=== PATIENT | female | born 1935 | race Caucasian/White ===

== ENCOUNTER 2024-02-15 14:37 | Emergency (ER) | payer MEDICARE, SELFPAY ==
--- NOTE | 2024-02-15 14:33 | ECG_ITS ---
APPROVED REPORT Exam: Resting ECG HR:56 bpm ECG Measurements Heart Rate 56 AXES MO 167 P 97 QRSd 166 QRS -20 QT 467 T 15 QTc 458 Conclusion SINUS BRADYCARDIA RIGHT BUNDLE BRANCH BLOCK [120+ ms QRS DURATION, UPRIGHT V1, 40+ ms S IN I/aVL/V4/V5/V6] ABNORMAL ECG UNCONFIRMED REPORT Electronically signed by : PARTH CADE, 02/16/2024 06:10:47
[2024-02-15 14:37] VITALS: BP 112/43; PULSE 58; RESP 18; TEMP 36.6; O2SAT 92; BMI 30.9
--- NOTE | 2024-02-15 14:39 | CT_ITS ---
PROCEDURE INFORMATION: Exam: CTA Neck With Contrast Exam date and time: 02/15/2024 2:54 PM Age: 88 years old Clinical indication: Stroke-like symptoms; Headache; Additional info: Sudden KO, n/v TECHNIQUE: Imaging protocol: Computed tomographic angiography of the neck with contrast. Exam focused on the cervical segments of the vasculature. 3D rendering (Not supervised by radiologist): MIP and/or 3D reconstructed images were created by the technologist. Radiation optimization: All CT scans at this facility use at least one of these dose optimization techniques: automated exposure control; mA and/or kV adjustment per patient size (includes targeted exams where dose is matched to clinical indication); or iterative reconstruction. Contrast material: ISOVUE 370; Contrast volume: 80 ml; Contrast route: INTRAVENOUS (IV); COMPARISON: CT ANGIO HEAD 02/15/2024 2:54 PM FINDINGS: Right common carotid artery: No stenosis. No dissection or occlusion. Right internal carotid artery: No stenosis of the extracranial segment. No dissection or occlusion. Right external carotid artery: No occlusion or stenosis of the origin. Left common carotid artery: No stenosis. No dissection or occlusion. Left internal carotid artery: No stenosis of the extracranial segment. No dissection or occlusion. Left external carotid artery: No occlusion or stenosis of the origin. Right vertebral artery: No stenosis. No dissection or occlusion. Left vertebral artery: No stenosis. No dissection or occlusion. Thyroid: Multiple hypodense lesions in the right lobe of the thyroid without suspicious features. Soft tissues: Normal. No significant soft tissue swelling. Bones/joints: No acute fracture. Lungs: 3 mm noncalcified pulmonary nodule in the right upper lobe. For patients at low risk (minimal or absent history of smoking and of other known risk factors), no routine follow-up is indicated. For patients at high risk (history of smoking or of other known risk factors), consider optional CT Chest at 12 months. (Reference: Pancho) IMPRESSION: 1. No hemodynamically significant stenosis or large vessel occlusion in the arteries of the neck. 2. 3 mm noncalcified nodule in the right upper lobe with follow-up recommendations as above. REFERENCES: 1. Pancho Kelly et al. Guidelines for Management of Incidental Pulmonary Nodules Detected on CT Images: From the Fleischner Society 2017. Radiology. 2017;284(1):228-243. 2. NASCET CRITERIA. The degree of stenosis in the cervical segment of the internal carotid artery is based on NASCET criteria. Normal is no stenosis. Mild is less than 50% stenosis. Moderate is 50-69% stenosis. Severe is 70% to 99% stenosis. Total occlusion is no detectable patent lumen.
--- NOTE | 2024-02-15 14:39 | CT_ITS ---
PROCEDURE INFORMATION: Exam: CT Head Without Contrast Exam date and time: 02/15/2024 2:48 PM Age: 88 years old Clinical indication: Stroke-like symptoms; Headache; Additional info: Sudden KO. Family states HX of stroke last week TECHNIQUE: Imaging protocol: Computed tomography of the head without contrast. Radiation optimization: All CT scans at this facility use at least one of these dose optimization techniques: automated exposure control; mA and/or kV adjustment per patient size (includes targeted exams where dose is matched to clinical indication); or iterative reconstruction. Other technique: STROKE PROTOCOL was implemented. COMPARISON: No relevant prior studies available. FINDINGS: Brain: Suspected old infarct in the medial aspect of the right cerebellum. Diffuse cerebral atrophy and white matter microangiopathic chronic ischemia in both hemispheres. No CT evidence of acute infarct, hemorrhage, mass or mass effect. Cerebral ventricles: No ventriculomegaly. Paranasal sinuses: Mild chronic right maxillary sinusitis. Mastoid air cells: Visualized mastoid air cells are well aerated. Bones: Unremarkable. No acute fracture. Soft tissues: Unremarkable. IMPRESSION: 1. Senescent brain changes but no CT evidence of acute brain injury. 2. Suspected old infarct in the medial right cerebellum. ASSESSMENT: ASPECTS ([place] Stroke Program Early CT Score) is 10.
--- NOTE | 2024-02-15 14:39 | CT_ITS ---
PROCEDURE INFORMATION: Exam: CTA Head With Contrast, Arteriography Exam date and time: 02/15/2024 2:54 PM Age: 88 years old Clinical indication: Stroke-like symptoms; Headache; Additional info: Sudden KO, n/v TECHNIQUE: Imaging protocol: Computed tomographic angiography of the head with contrast. Exam focused on the arteries. 3D rendering (Not supervised by radiologist): MIP and/or 3D reconstructed images were created by the technologist. Radiation optimization: All CT scans at this facility use at least one of these dose optimization techniques: automated exposure control; mA and/or kV adjustment per patient size (includes targeted exams where dose is matched to clinical indication); or iterative reconstruction. Contrast material: ISOVUE 370; Contrast volume: 80 ml; Contrast route: INTRAVENOUS (IV); COMPARISON: CT HEAD/BRAIN WO CON 02/15/2024 2:48 PM FINDINGS: ANTERIOR CIRCULATION: Right internal carotid artery: Intracranial segment is patent with no significant stenosis. No aneurysm. Right middle cerebral artery: No occlusion or significant stenosis. No aneurysm. Right anterior cerebral artery: No occlusion or significant stenosis. No aneurysm. Left internal carotid artery: Intracranial segment is patent with no significant stenosis. No aneurysm. Left middle cerebral artery: No occlusion or significant stenosis. No aneurysm. Left anterior cerebral artery: No occlusion or significant stenosis. No aneurysm. POSTERIOR CIRCULATION: Right vertebral artery: No occlusion or significant stenosis. No aneurysm. Left vertebral artery: No occlusion or significant stenosis. No aneurysm. Basilar artery: No occlusion or significant stenosis. No aneurysm. Right posterior cerebral artery: No occlusion or significant stenosis. No aneurysm. Left posterior cerebral artery: No occlusion or significant stenosis. No aneurysm. Brain: No definite mass, mass effect, or midline shift. Cerebral ventricles: No ventriculomegaly. Bones/joints: Unremarkable. No acute fracture. Soft tissues: Unremarkable. IMPRESSION: No large vessel stenosis or occlusion.
--- NOTE | 2024-02-15 14:39 | PC.NURSE ---
radiology notified of ct scans
--- NOTE | 2024-02-15 14:42 | PC.NURSE ---
pt to ct
--- NOTE | 2024-02-15 14:50 | XR_ITS ---
PROCEDURE INFORMATION: Exam: XR Chest Exam date and time: 02/15/2024 2:52 PM Age: 88 years old Clinical indication: Dyspnea TECHNIQUE: Imaging protocol: Radiologic exam of the chest. Views: 1 view. COMPARISON: No relevant prior studies available. FINDINGS: Tubes, catheters and devices: Loop recorder projecting over the left chest. Lungs: Unremarkable. No consolidation. Pleural spaces: Unremarkable. No pleural effusion. No pneumothorax. Heart/Mediastinum: Mild cardiomegaly. Bones/joints: Unremarkable. IMPRESSION: Mild cardiomegaly, otherwise clear chest.
--- NOTE | 2024-02-15 14:50 | PC.NURSE ---
Called [facility] for medical records per Dr. Godfrey. [facility] said [facility] would get them faxed on over.
[2024-02-15] MEDS: IOPAMIDOL-370 (76%);100ML BOTTLE 80 ML IV (14:51)
[2024-02-15] MEDS: SODIUM CHLORIDE 0.9% 10ML SYR (RAD ONLY) 10 ML IV (14:51)
[2024-02-15] MEDS: 0.9 % SODIUM CHLORIDE 50 ML VIAL IV (14:51)
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
--- NOTE | 2024-02-15 14:59 | PC.NURSE ---
pt returned from ct
[2024-02-15 15:00] VITALS: BP 107/39; PULSE 63; RESP 12; O2SAT 92
[2024-02-15 15:03] VITALS: BP 103/37; PULSE 63; O2SAT 99
[2024-02-15] MEDS: ACETAMINOPHEN 1,000MG/100ML VIAL 1000 MG IV (15:03)
[2024-02-15] MEDS: LACTATED RINGERS 1000ML 1,000 ML 999 ML IV (15:04)
[2024-02-15 15:13] LABS: Albumin Level 3.8 g/dl (3.5-5.0); Chloride 107 mmol/L (98-107); Potassium 3.2 mmoL/L (3.5-5.1); Sodium 138 mmol/L (136-145)
[2024-02-15 15:16] LABS: Alanine Aminotransferase 19 U/L (12-78); Albumin/Globulin Ratio 1.7 (1.1-1.8); Alkaline Phosphatase 67 U/L (38-126); Anion Gap 13.2 mEq/L (5-15); Aspartate Amino Transferase 21 U/L (14-36); Bilirubin,Total 0.9 mg/dl (0.2-1.3); Blood Urea Nitrogen 24 mg/dl (7-17); Calcium 9.6 mg/dl (8.4-10.2); Carbon Dioxide 21 mmol/L (22.0-30.0); Creatinine Clearance Estimated 38 mL/min (50-200); Estimated Glomerular Filt Rate 39 ml/min (>60); GFR (African American) 47 ML/MIN (>60); Globulin 2.2 g/dL (1.3-3.2); Glucose 154 mg/dl (74-100)
[2024-02-15 15:29] LABS: Troponin I < 0.01 ng/ml (0.00-0.034)
[2024-02-15 15:30] VITALS: BP 111/44; PULSE 57; O2SAT 99
--- NOTE | 2024-02-15 15:33 | PC.NURSE ---
DR LANGLEY SPEAKING WITH YASMINEAD
--- NOTE | 2024-02-15 15:34 | PC.NURSE ---
Called [facility] back to check on Medical Records.
[2024-02-15 16:02] LABS: Basophils % 0.4 % (0.1-2.0); Eosinophils % 0.5 % (0.1-12.0); Hematocrit 25.7 % (37.0-47.0); Hemoglobin 8.7 g/dL (12.2-16.2); Lymphocytes # 1.6 K/mm3 (0.7-4.5); Mean Corpuscular HGB Conc 33.9 g/dL (31.8-35.4); Mean Corpuscular Hemoglobin 33.9 pg (27.0-31.2); Mean Platelet Volume 9.7 fl (7.4-10.4); Monocytes # 0.2 K/mm3 (0.1-1.0); Monocytes % 5.6 % (1.7-9.3); Neutrophils # 2.4 K/mm3 (1.8-7.8); Neutrophils % 56.5 % (37.0-80.0); Platelet Count 152 K/mm3 (142-424); Red Blood Count 2.57 M/mm3 (4.20-5.40); Red Cell Distribution Width 16.3 % (11.5-17.5); White Blood Count 4.2 K/mm3 (4.8-10.8)
[2024-02-15 16:08] LABS: Activated Partial Thrombo Time 24.3 seconds (22.8-30.6); INR 0.91 (0.9-1.1); Prothrombin Time 10.3 seconds (10.1-12.5)
[2024-02-15] MEDS: POTASSIUM CHLORIDE 20MEQ/15ML UDC 40 MEQ PO (16:28)
--- NOTE | 2024-02-15 16:55 | PC.NURSE ---
Called [facility] back following up on the medical records. They are still working on getting those sent.
--- NOTE | 2024-02-15 17:45 | PC.NURSE ---
REPORT CALLED TO GUTIERREZ AT [id number]
[2024-02-15 18:03] VITALS: BP 132/55; PULSE 57; RESP 18; TEMP 36.7; O2SAT 97
== END 2024-02-15 18:09 | disposition home or self-care (01) ==
PROVIDERS: Student in an Organized Health Care Education/Training Program; Emergency Provider Student in an Organized Health Care Education/Training Program; PCP Nurse Practitioner Acute Care
DX: R55 Syncope and collapse (principal); R51.9 Headache, unspecified; R11.2 Nausea with vomiting, unspecified; R91.1 Solitary pulmonary nodule
CPT/HCPCS: 70450; 70496; 70498; 71045; 80053; 84484; 85025; 85610; 85730; 93005; 96361; 96374; 99291; J0131; J7120; Q9967

== ENCOUNTER 2024-02-18 13:36 | Emergency (ER) | payer MEDICARE, SELFPAY ==
[2024-02-18 13:37] VITALS: BP 125/48; PULSE 60; RESP 16; TEMP 36.7; O2SAT 97; BMI 30.9
--- NOTE | 2024-02-18 14:00 | HMH.EDGENADL ---
Discharge Plan Disposition Patient Disposition: Home, Self-Care Prescriptions Prescriptions: New ondansetron 4 mg tablet,disintegrating 4 mg PO Q6H PRN (Reason: nausea and vomiting) Qty: 14 0RF No Action melatonin 5 mg capsule 5 mg PO DAILY 90 Days Qty: 90 0RF mirtazapine 30 mg tablet 30 mg PO DAILY Qty: 30 2RF polyethylene glycol 3350 [Miralax] 17 gram/dose powder 17 g PO DAILY Qty: 510 0RF rivastigmine 9.5 mg/24 hour patch 24 hour 9.5 mg transdermal DAILY Qty: 30 2RF Rx Instructions: apply at 8am, remove at 8am tamsulosin 0.4 mg capsule 0.4 mg PO DAILY Qty: 30 2RF lisinopril 20 mg tablet 20 mg PO DAILY Qty: 30 2RF amlodipine 10 mg tablet 10 mg PO DAILY Qty: 30 2RF pravastatin 80 mg tablet 80 mg PO DAILY Qty: 30 2RF acetaminophen 325 mg capsule 650 mg PO Q6H PRN (Reason: headache) Qty: 60 0RF apixaban 2.5 mg tablet 2.5 mg PO BID Qty: 60 2RF aripiprazole 2 mg tablet 2 mg PO DAILY Qty: 30 2RF bethanechol chloride 10 mg tablet 10 mg PO TID Qty: 90 2RF donepezil 10 mg tablet 10 mg PO DAILY Qty: 30 2RF fluticasone furoate 50 mcg/actuation blister with device See Rx Instructions inhalation DAILY 90 Days Qty: 30 0RF Rx Instructions: 2 inhaled daily; hydralazine 25 mg tablet 25 mg PO BID Qty: 60 0RF hydroxyzine HCl 25 mg tablet 25 mg PO TID PRN (Reason: itching) Qty: 90 0RF meclizine 25 mg tablet 25 mg PO TID PRN (Reason: dizziness) Qty: 90 0RF Referrals Follow up/Referrals: Provider,Referral, MD [Primary Care Provider] - See instructions Activity Restrictions/Add. Instructions Additional Instructions/Restrictions: Give Tylenol or ibuprofen as needed for headache. Give Zofran as needed for nausea and vomiting. Follow-up with primary care doctor. Please return emerged part with any new, concerning, worsening symptoms Clinical Impressions Clinical Impression: Headache Qualifiers: Headache type: other headache syndrome Qualified Code(s): G44.89 - Other headache syndrome Print Language Print Language: [place] Discharge ED Provider: Manuel Eddy General Adult HPI <AUDREY Ragsdale - Last Filed: 02/18/24 14:00> General Chief complaint: Headache Stated complaint: Nausea/Vomiting Time Seen by Provider: 02/18/24 13:47 Mode of Arrival: EMS Source of Information: EMS Limitations: Altered Mental Status Description of Symptoms (Recalled from ER Triage Doc. by RN): headache,nausea Related Data Previous Rx's ?Medication ?Instructions ?Recorded acetaminophen 325 mg capsule 650 mg (2 x 325 mg) PO Q6H PRN 02/17/24 headache #60 caps amlodipine 10 mg tablet 10 mg PO DAILY #30 tabs 02/17/24 apixaban 2.5 mg tablet 2.5 mg PO BID #60 tabs 02/17/24 aripiprazole 2 mg tablet 2 mg PO DAILY #30 tabs 02/17/24 bethanechol chloride 10 mg tablet 10 mg PO TID #90 tabs 02/17/24 donepezil 10 mg tablet 10 mg PO DAILY #30 tabs 02/17/24 fluticasone furoate 50 See Rx Instructions inhalation 02/17/24 mcg/actuation blister powder for DAILY 90 days #30 ea inhalation hydralazine 25 mg tablet 25 mg PO BID #60 tabs 02/17/24 hydroxyzine HCl 25 mg tablet 25 mg PO TID PRN itching #90 tabs 02/17/24 lisinopril 20 mg tablet 20 mg PO DAILY #30 tabs 02/17/24 meclizine 25 mg tablet 25 mg PO TID PRN dizziness #90 tabs 02/17/24 melatonin 5 mg capsule 5 mg PO DAILY 90 days #90 caps 02/17/24 mirtazapine 30 mg tablet 30 mg PO DAILY #30 tabs 02/17/24 polyethylene glycol 3350 17 17 g PO DAILY #510 grams 02/17/24 gram/dose oral powder (Miralax) pravastatin 80 mg tablet 80 mg PO DAILY #30 tabs 02/17/24 rivastigmine 9.5 mg/24 hour 9.5 mg transdermal DAILY #30 ea 02/17/24 transdermal patch tamsulosin 0.4 mg capsule 0.4 mg PO DAILY #30 caps 02/17/24 ondansetron 4 mg disintegrating 4 mg PO Q6H PRN nausea and 02/18/24 tablet vomiting #14 tabs Allergies Allergy/AdvReac Type Severity Reaction Status Date / Time No Known Allergies Allergy Verified 02/15/24 15:00 <Manuel Eddy MD - Last Filed: 02/18/24 15:40> History of Present Illness HPI narrative: This is an 88-year-old female with a past medical history of hypertension, stroke, and dementia who presents with concern for headache. Patient was seen the emergency department 3 days ago for similar complaints. New resident at long-term and is unhappy with her placement. States the back of her head hurts but cannot provide any further characterization. Also reports nausea and vomiting. Denies any other symptoms. [facility] <AUDREY Ragsdale - Last Filed: 02/18/24 14:00> [facility] Disclaimer: The information contained in this section may have been updated after the patient was seen, as this information can be updated by other users. Medical History (Updated 02/18/24 @ 15:37 by Manuel Eddy MD) Pancytopenia MICKEY (acute kidney injury) Essential hypertension Dementia Severe malnutrition Cerebellar stroke Social History (Updated 02/15/24 @ 17:36 by Ed Taylor MD) Smoking Status: Never smoker alcohol intake: never current occupational status: retired Travel in the last 8 weeks: None <AUDREY Ragsdale - Last Filed: 02/18/24 14:00> ROS Obtained: Yes Systems reviewed as appropriate & no additional complaints except as documented Physical Exam <AUDREY Ragsdale - Last Filed: 02/18/24 14:00> General General appearance: alert and in no apparent distress Head Head exam: atraumatic and normal inspection Eye Eye exam: Present normal appearance, PERRL and EOMI ENT ENT exam: Present normal exam, normal oropharynx and mucous membranes moist Neck Neck exam: Present normal inspection, full ROM and trachea midline; Absent lymphadenopathy Chest Chest inspection: Present normal inspection and symmetric chest wall rise Respiratory Respiratory exam: Present normal lung sounds bilaterally; Absent accessory muscle use Cardiovascular Cardiovascular exam: Present regular rate, normal rhythm, normal heart sounds, +S1 and +S2 Abdominal Exam Abdominal exam: Present soft and normal bowel sounds; Absent tenderness, guarding or rebound Extremities Exam Extremities exam: Present normal inspection and full ROM Neurological Exam Neurological exam: Present alert, oriented X3 and CN II-XII intact Psychiatric Psychiatric exam: Present normal affect and normal mood Skin Skin exam: Present warm, dry and normal color Lymphatic Lymphatic Findings: no adenopathy Medical Decision Making <AUDREY Ragsdale - Last Filed: 02/18/24 14:00> Medical Records Screening: Per USPSTF and CDC recommendations, given the prevalence of disease in our region, it is our hospital?s policy to screen for HIV and viral Hepatitis for all patients aged 18 and over and those with ongoing risk factors. Vital Signs: 02/18/24 13:37 Temperature 98.1 F Temperature Source Axillary Pulse Rate [Right] 60 Respiratory Rate 16 Blood Pressure [Right Arm] 125/48 L Blood Pressure Mean [Right Arm] 73 02 Sat by Pulse Oximetry 97 Lab Data Lab Results 02/18/24 13:40: WBC 3.0 L D, RBC 2.58 L, Hgb 9.1 L, Hct 25.8 L, MCV 99.8 H, MCH 35.1 H, MCHC 35.1, RDW 16.5, Plt Count 156, MPV 8.9, Neut % (Auto) 71.5, Lymph % (Auto) 20.9, Faulkner % (Auto) 6.3, Eos % (Auto) 0.7, Baso % (Auto) 0.5, Neut # (Auto) 2.1, Lymph # (Auto) 0.6 L, Faulkner # (Auto) 0.2, Eos # (Auto) 0.0, Baso # (Auto) 0.0, Sodium 138, Potassium 3.5, Chloride 107, Carbon Dioxide 24, Anion Gap 10.5, BUN 26 H, Creatinine 1.30 H, Estimated Creat Clear 38, Estimated GFR 39 L, Est GFR ( Amer) 47 L, Glucose 122 H, Calcium 9.2, Total Bilirubin 0.8, AST 24, ALT 15, Alkaline Phosphatase 61, Total Protein 5.8 L, Albumin 3.7, Globulin 2.1, Albumin/Globulin Ratio 1.8 02/18/24 13:40 02/18/24 13:40 Orders (Tests/Meds): ED MEDICATIONS Discontinued Medications Generic Name Dose Route Start Last Admin Trade Name Freq PRN Reason Stop Dose Admin Acetaminophen 1,000 mg 02/18/24 14:05 02/18/24 14:16 Acetaminophen 500mg Tab PO 02/18/24 14:06 1,000 mg ONCE ONE Administration ORDERS Category Date Time Status CT head/brain wo con Stat Cat Scan 02/18/24 14:05 Completed CBC w/Auto Diff [Complete Blood Count Auto Diff] Stat Lab 02/18/24 13:40 Completed CMP [Comprehensive Metabolic Panel] Stat Lab 02/18/24 13:40 Completed HIV (1&2) Antibody Rapid Stat Lab 02/18/24 13:47 Ordered Hep C Ab with Reflex to RNA Stat Lab 02/18/24 13:47 Ordered Medical Decision Narrative: In summary patient is a [age, sex] who presents to the emergency department for evaluation of [complaint]. Patient is [hemodynamically stable/unstable] upon arrival, [febrile/afebrile]. [Unremarkable physical exam, nonfocal exam versus focal remarkable exam]. Differential diagnosis includes [DDx]. Initial workup will be conducted with [hematologic labs, imaging, respiratory swab, describe workup]. Initial interventions include [crystalloid bolus, medications, p.o. challenge, etc.] initial workup reviewed by me [hematologic labs are remarkable for... Imaging remarkable for... Urinalysis remarkable for]. Upon repeat evaluation [patient had acceptable resolution of symptoms, had persistent pain for which additional interventions were conducted (describe interventions), tolerated p.o., was ambulatory, etc.]. Given this [patient is appropriate for discharge at this time and will be discharged with a prescription for... The case was discussed with hospital medicine regarding management and they will admit the patient their service for continued evaluation at this time... Etc.] Places where you can increase complexity: I informally interpreted the patient's chest x-ray or CT read and is remarkable for... Documenting what the child monitor shows with rate and rhythm Consideration of test but deferring. Ex: I considered chest x-ray on this patient however given that they have no oxygen requirement and are clear to auscultation all lung parikh will be deferred. Social determinants of health: Given that patient is undomiciled increases complexity. Given that patient has polysubstance abuse compounds all aspects of care <Manuel Eddy MD - Last Filed: 02/18/24 15:40> Medical Records Medical records reviewed: Yes I reviewed the patient's medical records. Paco Inquiry Pt receiving controlled substance: No Vital Signs: 02/18/24 13:37 Temperature 98.1 F Temperature Source Axillary Pulse Rate [Right] 60 Respiratory Rate 16 Blood Pressure [Right Arm] 125/48 L Blood Pressure Mean [Right Arm] 73 02 Sat by Pulse Oximetry 97 Lab Data Lab Results 02/18/24 13:40: WBC 3.0 L D, RBC 2.58 L, Hgb 9.1 L, Hct 25.8 L, MCV 99.8 H, MCH 35.1 H, MCHC 35.1, RDW 16.5, Plt Count 156, MPV 8.9, Neut % (Auto) 71.5, Lymph % (Auto) 20.9, Faulkner % (Auto) 6.3, Eos % (Auto) 0.7, Baso % (Auto) 0.5, Neut # (Auto) 2.1, Lymph # (Auto) 0.6 L, Faulkner # (Auto) 0.2, Eos # (Auto) 0.0, Baso # (Auto) 0.0, Sodium 138, Potassium 3.5, Chloride 107, Carbon Dioxide 24, Anion Gap 10.5, BUN 26 H, Creatinine 1.30 H, Estimated Creat Clear 38, Estimated GFR 39 L, Est GFR ( Amer) 47 L, Glucose 122 H, Calcium 9.2, Total Bilirubin 0.8, AST 24, ALT 15, Alkaline Phosphatase 61, Total Protein 5.8 L, Albumin 3.7, Globulin 2.1, Albumin/Globulin Ratio 1.8 Orders (Tests/Meds): ED MEDICATIONS Discontinued Medications Generic Name Dose Route Start Last Admin Trade Name Freq PRN Reason Stop Dose Admin Acetaminophen 1,000 mg 02/18/24 14:05 02/18/24 14:16 Acetaminophen 500mg Tab PO 02/18/24 14:06 1,000 mg ONCE ONE Administration ORDERS Category Date Time Status CT head/brain wo con Stat Cat Scan 02/18/24 14:05 Completed CBC w/Auto Diff [Complete Blood Count Auto Diff] Stat Lab 02/18/24 13:40 Completed CMP [Comprehensive Metabolic Panel] Stat Lab 02/18/24 13:40 Completed HIV (1&2) Antibody Rapid Stat Lab 02/18/24 13:47 Ordered Hep C Ab with Reflex to RNA Stat Lab 02/18/24 13:47 Ordered Medical Decision Narrative: In summary, this 88-year-old female with a history of hypertension, dementia, prior stroke presents to the emergency department today with headache. On initial evaluation patient is afebrile, hemodynamically stable, nontoxic-appearing, baseline mental status, no focal neurological deficits. Differential diagnosis includes but is not limited to stroke, intracranial hemorrhage, migraine. Based on these concerns, I ordered CT head, CBC, CMP. Patient received Tylenol for treatment. Labs personally reviewed demonstrate chronic leukopenia at 3 and chronic anemia with a hemoglobin of 9.1, baseline renal function with creatinine of 1.3. CT imaging personally interpreted demonstrates no acute intracranial pathology. Radiology report notes chronic cerebellar stroke that was noted on previous scans. On reassessment the patient was in stable condition in no acute distress, at baseline mental status. Appropriate for discharge back to nursing care facility. Critical Care <Manuel Eddy MD - Last Filed: 02/18/24 15:40> Critical Care Time Critical Care Time: No
--- NOTE | 2024-02-18 14:05 | CT_ITS ---
PROCEDURE INFORMATION: Exam: CT Head Without Contrast Exam date and time: 02/18/2024 2:20 PM Age: 88 years old Clinical indication: Pain; Headache; Additional info: KO TECHNIQUE: Imaging protocol: Computed tomography of the head without contrast. Radiation optimization: All CT scans at this facility use at least one of these dose optimization techniques: automated exposure control; mA and/or kV adjustment per patient size (includes targeted exams where dose is matched to clinical indication); or iterative reconstruction. COMPARISON: CT ANGIO HEAD 02/15/2024 2:54 PM FINDINGS: Brain: An age-indeterminate infarct is again noted within the inferomedial right cerebellar hemisphere. The infarct may be subacute. An MRI is recommended if there is continued clinical concern for an acute stroke. There is no acute intracranial hemorrhage, mass effect, or midline shift. Chronic small vessel ischemic disease is present in the cerebral white matter. Age-related cerebral and cerebellar volume loss is present. Cerebral ventricles: No hydrocephalus. Paranasal sinuses: Mild mucosal thickening is noted within the maxillary sinuses. The remaining paranasal sinuses are clear. Mastoid air cells: Visualized mastoid air cells are well aerated. Orbital cavities: The visualized orbits appear unremarkable. Bones: Unremarkable. No acute fracture. Soft tissues: Unremarkable. IMPRESSION: An age-indeterminate infarct is again noted within the inferomedial right cerebellar hemisphere. The infarct may be subacute. An MRI is recommended if there is continued clinical concern for an acute stroke.
[2024-02-18 14:13] LABS: Basophils % 0.5 % (0.1-2.0); Eosinophils % 0.7 % (0.1-12.0); Hematocrit 25.8 % (37.0-47.0); Hemoglobin 9.1 g/dL (12.2-16.2); Lymphocytes # 0.6 K/mm3 (0.7-4.5); Lymphocytes % 20.9 % (10-50); Mean Corpuscular HGB Conc 35.1 g/dL (31.8-35.4); Mean Corpuscular Hemoglobin 35.1 pg (27.0-31.2); Mean Corpuscular Volume 99.8 fl (81-99); Mean Platelet Volume 8.9 fl (7.4-10.4); Monocytes # 0.2 K/mm3 (0.1-1.0); Monocytes % 6.3 % (1.7-9.3); Neutrophils # 2.1 K/mm3 (1.8-7.8); Neutrophils % 71.5 % (37.0-80.0); Platelet Count 156 K/mm3 (142-424); Red Blood Count 2.58 M/mm3 (4.20-5.40); Red Cell Distribution Width 16.5 % (11.5-17.5)
[2024-02-18] MEDS: ACETAMINOPHEN 500MG TAB 1000 MG PO (14:16)
[2024-02-18 14:23] LABS: Alanine Aminotransferase 15 U/L (12-78); Albumin Level 3.7 g/dl (3.5-5.0); Albumin/Globulin Ratio 1.8 (1.1-1.8); Alkaline Phosphatase 61 U/L (38-126); Anion Gap 10.5 mEq/L (5-15); Aspartate Amino Transferase 24 U/L (14-36); Bilirubin,Total 0.8 mg/dl (0.2-1.3); Blood Urea Nitrogen 26 mg/dl (7-17); Calcium 9.2 mg/dl (8.4-10.2); Carbon Dioxide 24 mmol/L (22.0-30.0); Chloride 107 mmol/L (98-107); Creatinine Clearance Estimated 38 mL/min (50-200); Estimated Glomerular Filt Rate 39 ml/min (>60); GFR (African American) 47 ML/MIN (>60); Globulin 2.1 g/dL (1.3-3.2); Glucose 122 mg/dl (74-100); Potassium 3.5 mmoL/L (3.5-5.1); Sodium 138 mmol/L (136-145); Total Protein,Serum 5.8 g/dl (6.3-8.2)
--- NOTE | 2024-02-18 15:56 | PC.NURSE ---
Report called to Dedra ROSENBERG at [facility]
--- NOTE | 2024-02-18 16:13 | PC.NURSE ---
[facility] NOTIFIED OF TRANSFER TO [facility]
[2024-02-18 16:26] VITALS: BP 141/51; PULSE 65; RESP 18; TEMP 36.4; O2SAT 95
== END 2024-02-18 16:30 | disposition home or self-care (01) ==
PROVIDERS: Emergency Provider Student in an Organized Health Care Education/Training Program
DX: R51.9 Headache, unspecified (principal); R11.2 Nausea with vomiting, unspecified
CPT/HCPCS: 70450; 80053; 85025; 99284

== ENCOUNTER 2024-02-20 10:58 | Outpatient (CLI) | payer MEDICARE, SELFPAY ==
[2024-02-20 11:32] LABS: Chloride 105 mmol/L (98-107); Sodium 137 mmol/L (136-145)
[2024-02-20 11:33] LABS: Potassium 3.9 mmoL/L (3.5-5.1)
[2024-02-20 11:36] LABS: Anion Gap 10.9 mEq/L (5-15); Blood Urea Nitrogen 23 mg/dl (7-17); Carbon Dioxide 25 mmol/L (22.0-30.0); Estimated Glomerular Filt Rate 42 ml/min (>60); GFR (African American) 51 ML/MIN (>60); Glucose 119 mg/dl (74-100)
== END 2024-02-20 23:59 | disposition home or self-care (01) ==
LOC: LAB.DROPOF 10:59
PROVIDERS: PCP Nurse Practitioner Family; Visit Provider Nurse Practitioner Family
DX: E78.5 Hyperlipidemia, unspecified (principal); E87.6 Hypokalemia; I10 Essential (primary) hypertension; N17.9 Acute kidney failure, unspecified
CPT/HCPCS: 80048

== ENCOUNTER 2024-02-21 11:03 | Emergency (ER) | payer MEDICARE, SELFPAY ==
[2024-02-21] VITALS (12 sets, daily range): BP systolic 109–138; BP diastolic 43–95; PULSE 64–84; RESP 16; TEMP 36.4–36.7; O2SAT 95–98; BMI 24.1
--- NOTE | 2024-02-21 11:08 | ECG_ITS ---
APPROVED REPORT Exam: Resting ECG HR:62 bpm ECG Measurements Heart Rate 62 AXES AK 167 P 44 QRSd 171 QRS -12 QT 431 T 37 QTc 436 Conclusion SINUS RHYTHM WITH MARKED SINUS ARRHYTHMIA RIGHT BUNDLE BRANCH BLOCK [120+ ms QRS DURATION, UPRIGHT V1, 40+ ms S IN I/aVL/V4/V5/V6] No STEMI Electronically signed by : TARA HARP, 02/22/2024 07:54:43
--- OUTSIDE RECORDS SUMMARY | 2024-02-21 11:08 | XMS_ITS | Patient Health Record ---
Author Organization [facility]-Alek Zavala MD Address [address] [place] [address] Care Team Providers Care Dietetics Teacher Name Role Phone Alek Zavala Unavailable [phone] REASON FOR REFERRAL No Information MEDICATIONS Medication SIG (Take, Route, Frequency, Duration) Notes Start Date End Date Status Lisinopril Active Pravastatin Sodium A ctive amLODIPine Besylate Active Vitamin D (Ergocalciferol) Active Azithromycin Not-Bakari ing Memantine HCl Not-Ta melisa Donepezil HCl Not-Ta melisa SOCIAL HISTORY Tobacco Use: Social History Observation Description Date Details (start date - stop date) Never Smoker NA - NA Sex Assigned At : Social History Observation Description Sex Assigned At Unknown Smoking Question Answer Notes Do you Smoke ? 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 [id number] PLAN OF TREATMENT No Information Insurance Providers Payer Name Payer Address Payer Phone Subscriber Number Group Number Insured Name Patient Relationship to Insured Coverage Start Date Coverage End Date [employer] [address] [address] [place] [address] [phone] [id number] Deann Carrillo Self - patient is the insured MEDICAL (GENERAL) HISTORY Medical History History ICD Code Thyroid Disease No hypertension No asthma No Diabetes No Diabetes Insulin Dependent No Heart Disease No Cancer No Lung Disease No kidney stones No Surgical History Surgery Date(Month/Year) tonsillectomy
--- NOTE | 2024-02-21 11:18 | HMH.EDGENADL ---
Discharge Plan Disposition Patient Disposition: Xfer SNF Condition: Good Prescriptions Prescriptions: No Action melatonin 5 mg capsule 5 mg PO DAILY 90 Days Qty: 90 0RF mirtazapine 30 mg tablet 30 mg PO DAILY Qty: 30 2RF polyethylene glycol 3350 [Miralax] 17 gram/dose powder 17 g PO DAILY Qty: 510 0RF rivastigmine 9.5 mg/24 hour patch 24 hour 9.5 mg transdermal DAILY Qty: 30 2RF Rx Instructions: apply at 8am, remove at 8am tamsulosin 0.4 mg capsule 0.4 mg PO DAILY Qty: 30 2RF lisinopril 20 mg tablet 20 mg PO DAILY Qty: 30 2RF amlodipine 10 mg tablet 10 mg PO DAILY Qty: 30 2RF pravastatin 80 mg tablet 80 mg PO DAILY Qty: 30 2RF acetaminophen 325 mg capsule 650 mg PO Q6H PRN (Reason: headache) Qty: 60 0RF apixaban 2.5 mg tablet 2.5 mg PO BID Qty: 60 2RF aripiprazole 2 mg tablet 2 mg PO DAILY Qty: 30 2RF bethanechol chloride 10 mg tablet 10 mg PO TID Qty: 90 2RF donepezil 10 mg tablet 10 mg PO DAILY Qty: 30 2RF fluticasone furoate 50 mcg/actuation blister with device See Rx Instructions inhalation DAILY 90 Days Qty: 30 0RF Rx Instructions: 2 inhaled daily; hydralazine 25 mg tablet 25 mg PO BID Qty: 60 0RF hydroxyzine HCl 25 mg tablet 25 mg PO TID PRN (Reason: itching) Qty: 90 0RF meclizine 25 mg tablet 25 mg PO TID PRN (Reason: dizziness) Qty: 90 0RF ondansetron 4 mg tablet,disintegrating 4 mg PO Q6H PRN (Reason: nausea and vomiting) Qty: 14 0RF Referrals Follow up/Referrals: Provider,Referral, MD [Primary Care Provider] - See instructions Activity Restrictions/Add. Instructions Additional Instructions/Restrictions: You were evaluated in the emergency department today. Please make sure you stay hydrated and eat a well-balanced diet. Return to the emergency department for new or worsening symptoms Clinical Impressions Clinical Impression: Acute dehydration, MICKEY (acute kidney injury) Instructions Patient Instructions: DI for Dehydration -- Adult Print Language Print Language: Estonian Discharge ED Provider: Ed Taylor General Adult HPI <Ed Taylor MD - Last Filed: 02/21/24 15:51> General Chief complaint: Weakness Stated complaint: Weakness Time Seen by Provider: 02/21/24 11:18 Mode of Arrival: EMS Source of Information: EMS Limitations: No Limitations Description of Symptoms (Recalled from ER Triage Doc. by RN): Pt was found by [employer] employee sitting in a chair unresponsive. pt was diaphoretic, cold, clammy and has had a decreased appetite. pt is alert to self, this is her baseline. pt is reportedly independent with ambulation. pt has a hx of dementia and CVA. [facility] told EMS that pt had an episode last week that presented just like today. History of Present Illness HPI narrative: Deann Carrillo is a 88F with a history of hyperlipidemia, MICKEY, hypertension, dimension, cerebellar stroke who presents to the emergency department from [facility] via EMS for altered mental status. EMS states that they were initially called out for another patient, however they walked in, the patient was in her wheelchair, slumped over and drooling and was minimally responsive. Fingerstick blood glucose and route was 157 and her mentation improved and round. Initial GCS was 11 with EMS. Patient is complaining of some right-sided head pain is unsure when this began. She is alert to self only at this time, however it is unclear what her baseline is at this time. She has no other complaints or concerns at this time. Related Data Previous Rx's ?Medication ?Instructions ?Recorded acetaminophen 325 mg capsule 650 mg (2 x 325 mg) PO Q6H PRN 02/17/24 headache #60 caps amlodipine 10 mg tablet 10 mg PO DAILY #30 tabs 02/17/24 apixaban 2.5 mg tablet 2.5 mg PO BID #60 tabs 02/17/24 aripiprazole 2 mg tablet 2 mg PO DAILY #30 tabs 02/17/24 bethanechol chloride 10 mg tablet 10 mg PO TID #90 tabs 02/17/24 donepezil 10 mg tablet 10 mg PO DAILY #30 tabs 02/17/24 fluticasone furoate 50 See Rx Instructions inhalation 02/17/24 mcg/actuation blister powder for DAILY 90 days #30 ea inhalation hydralazine 25 mg tablet 25 mg PO BID #60 tabs 02/17/24 hydroxyzine HCl 25 mg tablet 25 mg PO TID PRN itching #90 tabs 02/17/24 lisinopril 20 mg tablet 20 mg PO DAILY #30 tabs 02/17/24 meclizine 25 mg tablet 25 mg PO TID PRN dizziness #90 tabs 02/17/24 melatonin 5 mg capsule 5 mg PO DAILY 90 days #90 caps 02/17/24 mirtazapine 30 mg tablet 30 mg PO DAILY #30 tabs 02/17/24 polyethylene glycol 3350 17 17 g PO DAILY #510 grams 02/17/24 gram/dose oral powder (Miralax) pravastatin 80 mg tablet 80 mg PO DAILY #30 tabs 02/17/24 rivastigmine 9.5 mg/24 hour 9.5 mg transdermal DAILY #30 ea 02/17/24 transdermal patch tamsulosin 0.4 mg capsule 0.4 mg PO DAILY #30 caps 02/17/24 ondansetron 4 mg disintegrating 4 mg PO Q6H PRN nausea and 02/18/24 tablet vomiting #14 tabs Allergies Allergy/AdvReac Type Severity Reaction Status Date / Time No Known Allergies Allergy Verified 02/20/24 07:45 [facility] <Ed Taylor MD - Last Filed: 02/21/24 15:51> [facility] Disclaimer: The information contained in this section may have been updated after the patient was seen, as this information can be updated by other users. 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 Other Medical History Have you received the Pneumonia Vaccine: Yes <Ed Taylor MD - Last Filed: 02/21/24 15:51> ROS Obtained: Yes Systems reviewed as appropriate & no additional complaints except as documented Physical Exam <Ed Taylor MD - Last Filed: 02/21/24 15:51> General General appearance: alert and in no apparent distress Head Head exam: atraumatic Eye Eye exam: Present normal appearance ENT ENT exam: Present normal external ear exam Neck Neck exam: Present full ROM Chest Chest inspection: Present symmetric chest wall rise Respiratory Respiratory exam: Present normal lung sounds bilaterally; Absent respiratory distress, wheezes or stridor Cardiovascular Cardiovascular exam: Present regular rate and normal rhythm Abdominal Exam Abdominal exam: Present soft; Absent tenderness or guarding Extremities Exam Extremities exam: Present normal inspection Back Exam Back exam: Present normal inspection Neurological Exam Neurological exam: Present alert and other (Moving all extremities spontaneously, following commands, cranial nerves II through XII intact. No focal neurological deficits. Oriented to self but otherwise confused to location and date.) Skin Skin exam: Present warm, dry and other (Dry mucous membranes.) Medical Decision Making <Ed Taylor MD - Last Filed: 02/21/24 15:51> Medical Records Screening: Per USPSTF and CDC recommendations, given the prevalence of disease in our region, it is our hospital?s policy to screen for HIV and viral Hepatitis for all patients aged 18 and over and those with ongoing risk factors. Paco Inquiry Pt receiving controlled substance: No Vital Signs: 02/21/24 11:09 02/21/24 11:30 02/21/24 12:01 Temperature 97.5 F L Temperature Source Oral Pulse Rate 68 65 Pulse Rate [Left] 64 Respiratory Rate 16 Blood Pressure 125/43 L 133/50 L Blood Pressure [Right Arm] 124/53 L Blood Pressure Mean 72 77 Blood Pressure Mean [Right Arm] 76 Blood Pressure Source [Right Arm] Automatic Cuff Blood Pressure Position [Right Arm] Sitting 02 Sat by Pulse Oximetry 98 98 95 Oxygen Delivery Method Room Air 02/21/24 12:31 02/21/24 13:00 02/21/24 13:31 Temperature Temperature Source Pulse Rate 66 74 79 Pulse Rate [Left] Respiratory Rate Blood Pressure 130/47 L 125/60 118/95 H Blood Pressure [Right Arm] Blood Pressure Mean 74 81 100 Blood Pressure Mean [Right Arm] Blood Pressure Source [Right Arm] Blood Pressure Position [Right Arm] 02 Sat by Pulse Oximetry 97 95 96 Oxygen Delivery Method Room Air 02/21/24 14:00 02/21/24 14:31 02/21/24 15:00 Temperature Temperature Source Pulse Rate 79 68 84 Pulse Rate [Left] Respiratory Rate Blood Pressure 137/50 L 109/45 L 135/48 L Blood Pressure [Right Arm] Blood Pressure Mean 82 66 72 Blood Pressure Mean [Right Arm] Blood Pressure Source [Right Arm] Blood Pressure Position [Right Arm] 02 Sat by Pulse Oximetry 96 96 98 Oxygen Delivery Method Room Air 02/21/24 15:30 02/21/24 16:01 Temperature Temperature Source Pulse Rate 66 71 Pulse Rate [Left] Respiratory Rate Blood Pressure 129/48 L 138/54 L Blood Pressure [Right Arm] Blood Pressure Mean 75 82 Blood Pressure Mean [Right Arm] Blood Pressure Source [Right Arm] Blood Pressure Position [Right Arm] 02 Sat by Pulse Oximetry 96 96 Oxygen Delivery Method Room Air Room Air Lab Data Lab Results 02/21/24 11:01: WBC 3.8 L D, RBC 2.40 L, Hgb 8.2 L, Hct 24.2 L, MCV 100.8 H, MCH 34.2 H, MCHC 33.9, RDW 16.8, Plt Count 172, MPV 9.3, Neut % (Auto) 59.5, Lymph % (Auto) 32.4, [place] % (Auto) 7.1, Eos % (Auto) 0.5, Baso % (Auto) 0.6, Neut # (Auto) 2.3, Lymph # (Auto) 1.2, [place] # (Auto) 0.3, Eos # (Auto) 0.0, Baso # (Auto) 0.0, Sodium 136, Potassium 3.4 L, Chloride 107, Carbon Dioxide 23, Anion Gap 9.4, BUN 25 H, Creatinine 1.40 H, Estimated Creat Clear 31, Estimated GFR 35 L, Est GFR ( Amer) 43 L, Glucose 135 H, Calcium 9.0, Magnesium 1.9, Total Bilirubin 0.7, AST 20, ALT 13, Alkaline Phosphatase 65, Troponin I 0.03, Total Protein 5.6 L, Albumin 3.7, Globulin 1.9, Albumin/Globulin Ratio 1.9 H, Procalcitonin 0.106 02/21/24 14:17: Urine Color Yellow, Urine Appearance Clear, Urine pH 5.5, Ur Specific [place] 1.010, Urine Protein Negative, Urine Glucose (UA) Negative, Urine Ketones 1+, Urine Blood Negative, Urine Nitrate Negative, Urine Bilirubin Negative, Urine Urobilinogen 0.2, Ur Leukocyte Esterase Negative, Urine RBC None, Urine WBC None, Ur Squamous Epith Cells Occasional, Urine Bacteria Trace 02/21/24 11:01 02/21/24 11:01 Orders (Tests/Meds): ED MEDICATIONS Discontinued Medications Generic Name Dose Route Start Last Admin Trade Name Freq PRN Reason Stop Dose Admin Acetaminophen 1,000 mg 02/21/24 11:21 02/21/24 12:40 Acetaminophen 500mg Tab PO 02/21/24 11:22 1,000 mg ONCE ONE Administration Lactated Ringer's 1,000 mls @ 999 mls/hr 02/21/24 14:17 02/21/24 14:26 Lactated Ringer's 1000 Ml Bag IV 02/21/24 15:17 999 mls/hr .Q1H1M ONE Administration Iopamidol 80 ml 02/21/24 11:54 02/21/24 11:55 Iopamidol-370 (76%);100ml Bottle IV 02/21/24 11:55 80 ml ONCE ONE Administration Sodium Chloride 10 ml 02/21/24 11:54 02/21/24 11:55 Sodium Chloride 0.9% 10ml Syr (Rad Only) IV 02/21/24 11:55 10 ml ONCE ONE Administration Sodium Chloride 50 ml 02/21/24 11:54 02/21/24 11:54 0.9 % Sodium Chloride 50 Ml Vial IV 02/21/24 11:55 50 ml ONCE ONE Administration ORDERS Category Date Time Status CT angio head Stat Cat Scan 02/21/24 11:[address] angio neck Stat Cat Scan 02/21/24 11:[address] head/brain wo con Stat Cat Scan 02/21/24 11:21 Completed CXR --portable [XR chest portable] Stat Exams 02/21/24 11:21 Completed CBC w/Auto Diff [Complete Blood Count Auto Diff] Stat Lab 02/21/24 11:01 Completed CMP [Comprehensive Metabolic Panel] Stat Lab 02/21/24 11:01 Completed Magnesium Stat Lab 02/21/24 11:01 Completed Procalcitonin Stat Lab 02/21/24 11:01 Completed Troponin I Stat Lab 02/21/24 11:01 Completed UA [Urinalysis and Microscopic] Stat Lab 02/21/24 14:17 Completed Medical Decision Narrative: Deann Carrillo is a 88y female With a history of dementia, cerebellar stroke, MICKEY, hyperlipidemia who presents to the emergency department via EMS from her shelter for complaints of altered mental status. Reportedly, patient was found slumped over in her wheelchair and was minimally responsive at that time. EMS stated that she became more alert with them and route but appeared confused. Patient is hemodynamically stable on arrival, no acute respiratory distress, breathing comfortably on room air. She is confused but is following commands and has no focal neurological deficits. She has dry mucous membranes but otherwise her physical exam is grossly unremarkable. Differential diagnosis includes: UTI, hypoglycemia, electrolyte derangement, dehydration, stroke, among others Patient's workup: CBC, CMP, magnesium, troponin, procalcitonin, urinalysis Patient's workup was largely unremarkable for any acute pathology. Hemoglobin 8.2 (appears to be her baseline), no leukocytosis, no significant electrolyte derangement. Her creatinine is 1.4 with a BUN of 25 (baseline creatinine appears to be 1.2), glucose 135. Her BUN and creatinine appear to be prerenal in nature and will give 1 L lactated ringer. Procalcitonin negative at 0.106, initial troponin less than 0.03. Urine without evidence of infection. At this time, patient's care was transferred to the oncoming provider, Dr. Rios, pending completion of her IV fluids and reassessment. Is felt that once her procedure completed, she will likely be appropriate for discharge with close outpatient follow-up. <Sendy Rios, DO - Last Filed: 02/21/24 20:38> Vital Signs: 02/21/24 11:09 02/21/24 11:30 02/21/24 12:01 Temperature 97.5 F L Temperature Source Oral Pulse Rate 68 65 Pulse Rate [Left] 64 Respiratory Rate 16 Blood Pressure 125/43 L 133/50 L Blood Pressure [Right Arm] 124/53 L Blood Pressure Mean 72 77 Blood Pressure Mean [Right Arm] 76 Blood Pressure Source [Right Arm] Automatic Cuff Blood Pressure Position [Right Arm] Sitting 02 Sat by Pulse Oximetry 98 98 95 Oxygen Delivery Method Room Air 02/21/24 12:31 02/21/24 13:00 02/21/24 13:31 Temperature Temperature Source Pulse Rate 66 74 79 Pulse Rate [Left] Respiratory Rate Blood Pressure 130/47 L 125/60 118/95 H Blood Pressure [Right Arm] Blood Pressure Mean 74 81 100 Blood Pressure Mean [Right Arm] Blood Pressure Source [Right Arm] Blood Pressure Position [Right Arm] 02 Sat by Pulse Oximetry 97 95 96 Oxygen Delivery Method Room Air 02/21/24 14:00 02/21/24 14:31 02/21/24 15:00 Temperature Temperature Source Pulse Rate 79 68 84 Pulse Rate [Left] Respiratory Rate Blood Pressure 137/50 L 109/45 L 135/48 L Blood Pressure [Right Arm] Blood Pressure Mean 82 66 72 Blood Pressure Mean [Right Arm] Blood Pressure Source [Right Arm] Blood Pressure Position [Right Arm] 02 Sat by Pulse Oximetry 96 96 98 Oxygen Delivery Method Room Air 02/21/24 15:30 02/21/24 16:01 Temperature Temperature Source Pulse Rate 66 71 Pulse Rate [Left] Respiratory Rate Blood Pressure 129/48 L 138/54 L Blood Pressure [Right Arm] Blood Pressure Mean 75 82 Blood Pressure Mean [Right Arm] Blood Pressure Source [Right Arm] Blood Pressure Position [Right Arm] 02 Sat by Pulse Oximetry 96 96 Oxygen Delivery Method Room Air Room Air Lab Data Lab Results 02/21/24 11:01: WBC 3.8 L D, RBC 2.40 L, Hgb 8.2 L, Hct 24.2 L, MCV 100.8 H, MCH 34.2 H, MCHC 33.9, RDW 16.8, Plt Count 172, MPV 9.3, Neut % (Auto) 59.5, Lymph % (Auto) 32.4, [place] % (Auto) 7.1, Eos % (Auto) 0.5, Baso % (Auto) 0.6, Neut # (Auto) 2.3, Lymph # (Auto) 1.2, [place] # (Auto) 0.3, Eos # (Auto) 0.0, Baso # (Auto) 0.0, Sodium 136, Potassium 3.4 L, Chloride 107, Carbon Dioxide 23, Anion Gap 9.4, BUN 25 H, Creatinine 1.40 H, Estimated Creat Clear 31, Estimated GFR 35 L, Est GFR ( Amer) 43 L, Glucose 135 H, Calcium 9.0, Magnesium 1.9, Total Bilirubin 0.7, AST 20, ALT 13, Alkaline Phosphatase 65, Troponin I 0.03, Total Protein 5.6 L, Albumin 3.7, Globulin 1.9, Albumin/Globulin Ratio 1.9 H, Procalcitonin 0.106 02/21/24 14:17: Urine Color Yellow, Urine Appearance Clear, Urine pH 5.5, Ur Specific [place] 1.010, Urine Protein Negative, Urine Glucose (UA) Negative, Urine Ketones 1+, Urine Blood Negative, Urine Nitrate Negative, Urine Bilirubin Negative, Urine Urobilinogen 0.2, Ur Leukocyte Esterase Negative, Urine RBC None, Urine WBC None, Ur Squamous Epith Cells Occasional, Urine Bacteria Trace Orders (Tests/Meds): ED MEDICATIONS Discontinued Medications Generic Name Dose Route Start Last Admin Trade Name Freq PRN Reason Stop Dose Admin Acetaminophen 1,000 mg 02/21/24 11:21 02/21/24 12:40 Acetaminophen 500mg Tab PO 02/21/24 11:22 1,000 mg ONCE ONE Administration Lactated Ringer's 1,000 mls @ 999 mls/hr 02/21/24 14:17 02/21/24 14:26 Lactated Ringer's 1000 Ml Bag IV 02/21/24 15:17 999 mls/hr .Q1H1M ONE Administration Iopamidol 80 ml 02/21/24 11:54 02/21/24 11:55 Iopamidol-370 (76%);100ml Bottle IV 02/21/24 11:55 80 ml ONCE ONE Administration Sodium Chloride 10 ml 02/21/24 11:54 02/21/24 11:55 Sodium Chloride 0.9% 10ml Syr (Rad Only) IV 02/21/24 11:55 10 ml ONCE ONE Administration Sodium Chloride 50 ml 02/21/24 11:54 02/21/24 11:54 0.9 % Sodium Chloride 50 Ml Vial IV 02/21/24 11:55 50 ml ONCE ONE Administration ORDERS Category Date Time Status CT angio head Stat Cat Scan 02/21/24 11:[address] angio neck Stat Cat Scan 02/21/24 11:[address] head/brain wo con Stat Cat Scan 02/21/24 11:21 Completed CXR --portable [XR chest portable] Stat Exams 02/21/24 11:21 Completed CBC w/Auto Diff [Complete Blood Count Auto Diff] Stat Lab 02/21/24 11:01 Completed CMP [Comprehensive Metabolic Panel] Stat Lab 02/21/24 11:01 Completed Magnesium Stat Lab 02/21/24 11:01 Completed Procalcitonin Stat Lab 02/21/24 11:01 Completed Troponin I Stat Lab 02/21/24 11:01 Completed UA [Urinalysis and Microscopic] Stat Lab 02/21/24 14:17 Completed Medical Decision Narrative: Deann Carrillo is a 88y female With a history of dementia, cerebellar stroke, MICKEY, hyperlipidemia who presents to the emergency department via EMS from her shelter for complaints of altered mental status. Reportedly, patient was found slumped over in her wheelchair and was minimally responsive at that time. EMS stated that she became more alert with them and route but appeared confused. Patient is hemodynamically stable on arrival, no acute respiratory distress, breathing comfortably on room air. She is confused but is following commands and has no focal neurological deficits. She has dry mucous membranes but otherwise her physical exam is grossly unremarkable. Differential diagnosis includes: UTI, hypoglycemia, electrolyte derangement, dehydration, stroke, among others Patient's workup: CBC, CMP, magnesium, troponin, procalcitonin, urinalysis Patient's workup was largely unremarkable for any acute pathology. Hemoglobin 8.2 (appears to be her baseline), no leukocytosis, no significant electrolyte derangement. Her creatinine is 1.4 with a BUN of 25 (baseline creatinine appears to be 1.2), glucose 135. Her BUN and creatinine appear to be prerenal in nature and will give 1 L lactated ringer. Procalcitonin negative at 0.106, initial troponin less than 0.03. Urine without evidence of infection. At this time, patient's care was transferred to the oncoming provider, Dr. Rios, pending completion of her IV fluids and reassessment. Is felt that once her procedure completed, she will likely be appropriate for discharge with close outpatient follow-up. Gabriel, DO: On my assumption of the care of the patient, her reports that she is now at her baseline. She is alert, conversational, and she is able to get up and ambulate throughout the room without issue. She seems to have perked up a lot after resuscitation with IV fluids. Given improvement and return to her baseline with her reassuring workup, I feel that she is appropriate for discharge home with close monitoring at her half-way facility and strict return precautions. Patient was discharged after all questions were answered. EMS transport was delayed because they were out of the [facility], but ultimately they arrived and transported her back in stable condition. Critical Care <Ed Taylor MD - Last Filed: 02/21/24 15:51> Critical Care Time Critical Care Time: No
--- NOTE | 2024-02-21 11:19 | PC.NURSE ---
Dr. Taylor at [facility]
--- NOTE | 2024-02-21 11:21 | CT_ITS ---
PROCEDURE INFORMATION: Exam: CT Head Without Contrast Exam date and time: 02/21/2024 11:49 AM Age: 88 years old Clinical indication: Pain; Altered mental status/memory loss; Headache; Additional info: AMS, headache TECHNIQUE: Imaging protocol: Computed tomography of the head without contrast. Radiation optimization: All CT scans at this facility use at least one of these dose optimization techniques: automated exposure control; mA and/or kV adjustment per patient size (includes targeted exams where dose is matched to clinical indication); or iterative reconstruction. COMPARISON: CT ANGIO HEAD 02/21/2024 11:[address] head 02/15/2024. This described an infarct in the medial right cerebellum. FINDINGS: Brain: A maturing appearing infarct is again demonstrated in the medial right cerebellum, either subacute or chronic stage. No new evolving cerebral transcortical infarct identified. White matter hypodensities most likely representing chronic small vessel ischemic change. The brain demonstrates moderate, generalized volume loss. Cerebral ventricles: The ventricles are enlarged in keeping with volume loss. Paranasal sinuses: Mild mucosal thickening in the inferior maxillary sinuses. Mastoid air cells: Visualized mastoid air cells are well aerated. Orbital cavities: Thinning of the lenses of the globes consistent with prior lens surgery. Bones: Unremarkable. No acute fracture. Soft tissues: Unremarkable. IMPRESSION: No acute intracranial abnormality seen.
--- NOTE | 2024-02-21 11:21 | XR_ITS ---
PROCEDURE INFORMATION: Exam: XR Chest Exam date and time: 02/21/2024 11:53 AM Age: 88 years old Clinical indication: Other: AMS TECHNIQUE: Imaging protocol: Radiologic exam of the chest. Views: 1 view. COMPARISON: CR XR CHEST PORTABLE 02/15/2024 2:52 PM FINDINGS: Tubes, catheters and devices: A loop recorder device projects over the left lung base and cardiac apex. Lungs: Peribronchial thickening is similar to the prior study. There are areas of interstitial prominence, as before. An area of likely parenchymal scarring in the left lung base is unchanged. No lobar consolidation seen. Pleural spaces: Unremarkable. No pleural effusion. No pneumothorax. Heart/Mediastinum: There is stable cardiomegaly. Bones/joints: The thoracic spine demonstrates diffuse idiopathic skeletal hyperostosis. There is mild cervicothoracic scoliosis. No acute fracture seen. IMPRESSION: No evidence of acute cardiopulmonary disease.
--- NOTE | 2024-02-21 11:21 | CT_ITS ---
PROCEDURE INFORMATION: Exam: CTA Head With Contrast, Arteriography Exam date and time: 02/21/2024 11:49 AM Age: 88 years old Clinical indication: Pain; Headache; Additional info: Right headache TECHNIQUE: Imaging protocol: Computed tomographic angiography of the head with contrast. Exam focused on the arteries. 3D rendering (Not supervised by radiologist): MIP and/or 3D reconstructed images were created by the technologist. Radiation optimization: All CT scans at this facility use at least one of these dose optimization techniques: automated exposure control; mA and/or kV adjustment per patient size (includes targeted exams where dose is matched to clinical indication); or iterative reconstruction. Contrast material: ISOVUE 370; Contrast volume: 80 ml; Contrast route: INTRAVENOUS (IV); COMPARISON: CT ANGIO HEAD 02/15/2024 2:54 PM FINDINGS: ANTERIOR CIRCULATION: Right internal carotid artery: The right ICA demonstrates calcified atherosclerosis not contributing to stenosis. Right middle cerebral artery: No occlusion or significant stenosis. No aneurysm. Right anterior cerebral artery: No occlusion or significant stenosis. No aneurysm. Left internal carotid artery: The left ICA demonstrates calcified atherosclerosis not contributing to stenosis. Left middle cerebral artery: No occlusion or significant stenosis. No aneurysm. Left anterior cerebral artery: The left CHRIS is patent. 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 Left vertebral artery: The left vertebral artery is dominant, patent. Basilar artery: No occlusion or significant stenosis. No aneurysm. Right posterior cerebral artery: The right posterior cerebral artery is segmentally occluded in the proximal P2 segment. This can be retrospectively appreciated and is unchanged. Left posterior cerebral artery: No occlusion or significant stenosis. No aneurysm. Brain: No definite mass, mass effect, or midline shift. Cerebral ventricles: No significant ventriculomegaly. Bones/joints: Unremarkable. No acute fracture. Soft tissues: Unremarkable. 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
[2024-02-21 11:30] LABS: Chloride 107 mmol/L (98-107)
[2024-02-21 11:31] LABS: Albumin Level 3.7 g/dl (3.5-5.0); Potassium 3.4 mmoL/L (3.5-5.1); Sodium 136 mmol/L (136-145)
[2024-02-21 11:33] LABS: Basophils % 0.6 % (0.1-2.0); Eosinophils % 0.5 % (0.1-12.0); Hematocrit 24.2 % (37.0-47.0); Hemoglobin 8.2 g/dL (12.2-16.2); Lymphocytes # 1.2 K/mm3 (0.7-4.5); Lymphocytes % 32.4 % (10-50); Mean Corpuscular HGB Conc 33.9 g/dL (31.8-35.4); Mean Corpuscular Hemoglobin 34.2 pg (27.0-31.2); Mean Corpuscular Volume 100.8 fl (81-99); Mean Platelet Volume 9.3 fl (7.4-10.4); Monocytes # 0.3 K/mm3 (0.1-1.0); Monocytes % 7.1 % (1.7-9.3); Neutrophils # 2.3 K/mm3 (1.8-7.8); Neutrophils % 59.5 % (37.0-80.0); Platelet Count 172 K/mm3 (142-424); Red Cell Distribution Width 16.8 % (11.5-17.5); White Blood Count 3.8 K/mm3 (4.8-10.8)
[2024-02-21 11:34] LABS: Alanine Aminotransferase 13 U/L (12-78); Albumin/Globulin Ratio 1.9 (1.1-1.8); Alkaline Phosphatase 65 U/L (38-126); Anion Gap 9.4 mEq/L (5-15); Aspartate Amino Transferase 20 U/L (14-36); Bilirubin,Total 0.7 mg/dl (0.2-1.3); Blood Urea Nitrogen 25 mg/dl (7-17); Carbon Dioxide 23 mmol/L (22.0-30.0); Creatinine Clearance Estimated 31 mL/min (50-200); Estimated Glomerular Filt Rate 35 ml/min (>60); GFR (African American) 43 ML/MIN (>60); Globulin 1.9 g/dL (1.3-3.2); Glucose 135 mg/dl (74-100); Magnesium 1.9 mg/dl (1.6-2.3); Total Protein,Serum 5.6 g/dl (6.3-8.2)
--- NOTE | 2024-02-21 11:38 | CT_ITS ---
PROCEDURE INFORMATION: Exam: CTA Neck With Contrast Exam date and time: 02/21/2024 11:49 AM Age: 88 years old Clinical indication: Headache and other: AMS TECHNIQUE: Imaging protocol: Computed tomographic angiography of the neck with contrast. Exam focused on the cervical segments of the vasculature. 3D rendering (Not supervised by radiologist): MIP and/or 3D reconstructed images were created by the technologist. Radiation optimization: All CT scans at this facility use at least one of these dose optimization techniques: automated exposure control; mA and/or kV adjustment per patient size (includes targeted exams where dose is matched to clinical indication); or iterative reconstruction. Contrast material: ISOVUE 370; Contrast volume: 80 ml; Contrast route: INTRAVENOUS (IV); COMPARISON: CT ANGIO NECK 02/15/2024 2:54 PM FINDINGS: Right common carotid artery: No stenosis. No dissection or occlusion. Right internal carotid artery: Mild proximal right ICA atherosclerosis does not contribute to stenosis. Right external carotid artery: No occlusion or stenosis of the origin. Left common carotid artery: No stenosis. No dissection or occlusion. Left internal carotid artery: No stenosis of the extracranial segment. No dissection or occlusion. Left external carotid artery: No occlusion or stenosis of the origin. Right vertebral artery: Calcified atherosclerosis at the origin of the right vertebral artery causing mild stenosis. Left vertebral artery: The left vertebral artery is mildly dominant, patent. No dissection. Thyroid: Bilateral thyroid nodules again demonstrated. A dominant nodule in the right thyroid lobe measures 2.1 cm. Thyroid ultrasound may be performed for further characterization, as needed. Soft tissues: Normal. No significant soft tissue swelling. Bones/joints: The cervical spine is evaluated on MIP reconstructions only. Severe degenerative changes at C1-C2. There is prominent degenerative disc disease at C6-C7. Severe cervical facet arthropathy. Relatively mild to moderate degenerative changes elsewhere. IMPRESSION: 1. No acute vascular findings in the neck. 2. 0% right ICA stenosis. 3. 0% left ICA stenosis. 4. The vertebral arteries are patent without significant stenoses. COMMENTS: Consistent with the [employer]'s Incidental Findings Committee white paper (J Am Luisito Radiol 2015): In patients aged 35 years and older with an incidental thyroid nodule equal to or greater than 1.[address], MRI or extrathyroidal US, further evaluation with dedicated thyroid US is recommended for patients with normal life expectancy and without comorbidities. For smaller nodules without suspicious features, no further evaluation or follow up is recommended. REFERENCES: NASCET CRITERIA. The degree of stenosis in the cervical segment of the internal carotid artery is based on NASCET criteria. Normal is no stenosis. Mild is less than 50% stenosis. Moderate is 50-69% stenosis. Severe is 70% to 99% stenosis. Total occlusion is no detectable patent lumen.
--- NOTE | 2024-02-21 11:39 | PC.NURSE ---
pt to radiology at
[2024-02-21 11:46] LABS: Troponin I 0.03 ng/ml (0.00-0.034)
[2024-02-21] MEDS: 0.9 % SODIUM CHLORIDE 50 ML VIAL IV (11:54)
[2024-02-21] MEDS: SODIUM CHLORIDE 0.9% 10ML SYR (RAD ONLY) 10 ML IV (11:55)
[2024-02-21] MEDS: IOPAMIDOL-370 (76%);100ML BOTTLE 80 ML IV (11:55)
[2024-02-21 12:15] LABS: Procalcitonin 0.106 ng/mL (0.0-2.0)
[2024-02-21] MEDS: ACETAMINOPHEN 500MG TAB 1000 MG PO (12:40)
--- NOTE | 2024-02-21 12:52 | PC.NURSE ---
[place] placed on patient. pt is clean and dry. no other needs at this time
--- NOTE | 2024-02-21 13:30 | PC.NURSE ---
pt has still not voided at this time
--- NOTE | 2024-02-21 14:20 | PC.NURSE ---
rounded on pt at this time and provided new warm blankets
[2024-02-21 14:21] LABS: Microscopic, Urine URINE MICROSCOPIC (MICROSCOPIC)
[2024-02-21] MEDS: LACTATED RINGERS 1000ML 1,000 ML 999 ML IV (14:26)
[2024-02-21 14:27] LABS: Appearance,Urine CLEAR (Clear); Bilirubin,Urine Negative (Negative); Blood, Urine Negative (Negative); Color,Urine YELLOW (Yellow); Glucose,Urine (UA) Negative (Negative); Ketones,Urine 1+ (Negative); Leukocyte Esterase,Urine Negative (Negative); Nitrate,Urine Negative (Negative); PH,Urine 5.5 (5.0-8.5); Protein,Urine Negative (Negative); Urobilinogen,Urine 0.2 EU/dl (0.2)
[2024-02-21 14:28] LABS: Bacteria,Urine Trace /lpf; Squamous Epithelial Cell,Urine Occasional #/hpf (0-5)
--- NOTE | 2024-02-21 15:17 | PC.NURSE ---
informed pt and family that the alarms going off was just a drill. no needs reported at this time
--- NOTE | 2024-02-21 15:52 | PC.NURSE ---
gave update to Stefanie at [place]
--- NOTE | 2024-02-21 20:40 | PC.NURSE ---
Gave report to Hetal at [facility].
== END 2024-02-21 20:43 ==
PROVIDERS: Emergency Provider Student in an Organized Health Care Education/Training Program
DX: N17.9 Acute kidney failure, unspecified (principal); E86.0 Dehydration; R53.1 Weakness; R51.9 Headache, unspecified; R61 Generalized hyperhidrosis; R68.83 Chills (without fever)
CPT/HCPCS: 70450; 70496; 70498; 71045; 80053; 81001; 83735; 84145; 84484; 85025; 93005; 96360; 99285; J7120; Q9967

== ENCOUNTER 2024-02-25 12:23 | Outpatient (CLI) | payer MEDICARE, SELFPAY ==
--- OUTSIDE RECORDS SUMMARY | 2024-02-25 12:25 | XMS_ITS | Patient Health Record ---
Author Organization [place] [facility]-Alek Zavala MD Address 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 [id number] PLAN OF TREATMENT No Information Insurance Providers Payer Name Payer Address Payer Phone Subscriber Number Group Number Insured Name Patient Relationship to Insured Coverage Start Date Coverage End Date [employer] [address] [address] [place] [address] [phone] [id number] Deann Carrillo Self - patient is the insured MEDICAL (GENERAL) HISTORY Medical History History ICD Code Thyroid Disease No hypertension No asthma No Diabetes No Diabetes Insulin Dependent No Heart Disease No Cancer No Lung Disease No kidney stones No Surgical History Surgery Date(Month/Year) tonsillectomy
[2024-02-25 12:42] LABS: Hematocrit 24.3 % (37.0-47.0); Hemoglobin 8.2 g/dL (12.2-16.2)
== END 2024-02-25 23:59 | disposition home or self-care (01) ==
LOC: LAB.DROPOF 12:24
PROVIDERS: PCP Family Medicine; Visit Provider Family Medicine
DX: E87.6 Hypokalemia (principal); E86.0 Dehydration; N17.9 Acute kidney failure, unspecified; I45.10 Unspecified right bundle-branch block; I49.8 Other specified cardiac arrhythmias; R00.1 Bradycardia, unspecified; I63.9 Cerebral infarction, unspecified; F03.90 Unspecified dementia, unspecified severity, without behavioral disturbance, psychotic disturbance, mood disturbance, and anxiety
CPT/HCPCS: 85014; 85018

== ENCOUNTER 2024-03-03 19:36 | Outpatient (CLI) | payer MEDICARE, SELFPAY ==
--- OUTSIDE RECORDS SUMMARY | 2024-03-03 19:38 | XMS_ITS | Patient Health Record ---
Author Organization [place] [facility]-Alek Zavala MD Address 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
[2024-03-03 20:11] LABS: Basophils % 0.7 % (0.1-2.0); Eosinophils % 0.5 % (0.1-12.0); Hematocrit 26.2 % (37.0-47.0); Hemoglobin 9.1 g/dL (12.2-16.2); Lymphocytes # 1.7 K/mm3 (0.7-4.5); Lymphocytes % 39.7 % (10-50); Mean Corpuscular HGB Conc 34.8 g/dL (31.8-35.4); Mean Corpuscular Hemoglobin 35.9 pg (27.0-31.2); Mean Corpuscular Volume 103.3 fl (81-99); Mean Platelet Volume 9.5 fl (7.4-10.4); Monocytes # 0.2 K/mm3 (0.1-1.0); Monocytes % 5.7 % (1.7-9.3); Neutrophils # 2.2 K/mm3 (1.8-7.8); Neutrophils % 53.4 % (37.0-80.0); Platelet Count 209 K/mm3 (142-424); Red Blood Count 2.53 M/mm3 (4.20-5.40); Red Cell Distribution Width 17.1 % (11.5-17.5); White Blood Count 4.2 K/mm3 (4.8-10.8)
== END 2024-03-03 23:59 | disposition home or self-care (01) ==
LOC: LAB.DROPOF 19:37
PROVIDERS: PCP Family Medicine; Visit Provider Family Medicine
DX: R00.1 Bradycardia, unspecified (principal); F03.90 Unspecified dementia, unspecified severity, without behavioral disturbance, psychotic disturbance, mood disturbance, and anxiety; I63.9 Cerebral infarction, unspecified; N17.9 Acute kidney failure, unspecified; I10 Essential (primary) hypertension; G44.89 Other headache syndrome; D61.818 Other pancytopenia; E87.6 Hypokalemia; E78.5 Hyperlipidemia, unspecified
CPT/HCPCS: 85025

== ENCOUNTER 2024-03-04 10:19 | Emergency (ER) | payer MEDICARE, SELFPAY ==
[2024-03-04] VITALS (10 sets, daily range): BP systolic 110–148; BP diastolic 41–65; PULSE 59–75; RESP 11–20; TEMP 36.6; O2SAT 96–98; BMI 580.7
--- OUTSIDE RECORDS SUMMARY | 2024-03-04 10:22 | XMS_ITS | Patient Health Record ---
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 [id number] PLAN OF TREATMENT No Information Insurance Providers Payer Name Payer Address Payer Phone Subscriber Number Group Number Insured Name Patient Relationship to Insured Coverage Start Date Coverage End Date [employer] [address] [address] [place] [phone] [id number] Deann Carrillo Self - patient is the insured MEDICAL (GENERAL) HISTORY Medical History History ICD Code Thyroid Disease No hypertension No asthma No Diabetes No Diabetes Insulin Dependent No Heart Disease No Cancer No Lung Disease No kidney stones No Surgical History Surgery Date(Month/Year) tonsillectomy
--- NOTE | 2024-03-04 10:27 | ECG_ITS ---
APPROVED REPORT Exam: Resting ECG HR:62 bpm ECG Measurements Heart Rate 62 AXES MI 154 P 107 QRSd 167 QRS 0 QT 437 T 7 QTc 442 Conclusion SINUS RHYTHM WITH OCCASIONAL SUPRAVENTRICULAR PREMATURE COMPLEXES INTRAVENTRICULAR CONDUCTION DELAY [130+ ms QRS DURATION] LATERAL MYOCARDIAL INFARCTION , PROBABLY RECENT [40+ ms Q WAVE AND/OR ST/T ABNORMALITY IN I/aVL/V5/V6] Motion artifact degraded study. No obvious acute STEMI. Repeat EKG after this reassuring. Electronically signed by : CARLOS GARCIA, 03/04/2024 15:47:18
--- NOTE | 2024-03-04 10:42 | ECG_ITS ---
APPROVED REPORT Exam: Resting ECG HR:62 bpm ECG Measurements Heart Rate 62 AXES SD 163 P 98 QRSd 145 QRS -10 QT 422 T 50 QTc 428 Conclusion SINUS RHYTHM RIGHT BUNDLE BRANCH BLOCK [120+ ms QRS DURATION, UPRIGHT V1, 40+ ms S IN I/aVL/V4/V5/V6] ABNORMAL ECG Electronically signed by : CARLOS GARCIA, 03/04/2024 15:47:00
--- NOTE | 2024-03-04 10:45 | XR_ITS ---
FINAL REPORT CLINICAL HISTORY: .AMS COMPARISON: None FINDINGS: A single portable view of the chest was obtained. The heart size is enlarged. The pulmonary vascularity is within normal limits. A loop recorder is present. The mediastinum is within normal limits. No acute pulmonary abnormality is identified. There is mild scarring in the left lung base. The bony thorax is intact. IMPRESSION: Mild left lung base scarring. Reviewed, Interpreted and Dictated by Honorio Millan III, MD Transcribed by Ibis Whittington Authenticated and [facility]
--- NOTE | 2024-03-04 10:45 | CT_ITS ---
FINAL REPORT CLINICAL HISTORY: ams COMPARISON: None FINDINGS: Axial images of the head were obtained without contrast. Coronal reformatted images were also obtained. This study was performed with techniques to keep radiation doses as low as reasonably achievable (ALARA). Individualized dose reduction techniques using automated exposure control or adjustment of mA and/or kV according to the patient's size were employed. There is generalized age-appropriate atrophy. Periventricular low-attenuation areas are seen consistent with mild chronic ischemic changes. There is no evidence of intracranial hemorrhage or mass. There is no evidence of acute infarct. There is no evidence of shift of the midline structures. No skull abnormality is seen on the bone window images. There is mucosal thickening of multiple sinuses. Fluid level in the right sphenoid sinus is consistent with acute sinusitis. IMPRESSION: Atrophy and mild periventricular chronic ischemic changes. No acute intracranial abnormality identified. Acute right sphenoid sinusitis. Reviewed, Interpreted and Dictated by Honorio Millan III, MD Transcribed by Ibis Whittington Authenticated and [facility]
[2024-03-04 10:50] LABS: Microscopic, Urine URINE MICROSCOPIC (MICROSCOPIC)
[2024-03-04 10:52] LABS: Appearance,Urine SL CLOUDY (Clear); Blood, Urine Negative (Negative); Color,Urine YELLOW (Yellow); Glucose,Urine (UA) Negative (Negative); Ketones,Urine 2+ (Negative); Leukocyte Esterase,Urine TRACE (Negative); Nitrate,Urine POSITIVE (Negative); Protein,Urine 1+ (Negative); Specific Gravity, Urine >= 1.030 (1.005-1.030)
[2024-03-04 10:54] LABS: Bilirubin,Urine 1+ (Negative)
[2024-03-04 10:55] LABS: Lactate Venous 1.2 mmol/L (0.4-2.0); VBG Base Excess -3.7 mmol/L (-2.4-2.3); VBG HCO3 21.3 mmol/L (23-30); VBG Oxygen Saturation 97.4 % (50-70); VBG PCO2 36.2 mmol/L (35-51); VBG PH 7.39 mmol/L (7.31-7.41); VBG PO2 103.1 mmol/L (28-40); VBG Total CO2 22.4 mmol/L (23-27)
[2024-03-04 10:56] LABS: Basophils % 0.2 % (0.1-2.0); Eosinophils % 0.3 % (0.1-12.0); Hematocrit 25.2 % (37.0-47.0); Hemoglobin 8.5 g/dL (12.2-16.2); Lymphocytes # 0.6 K/mm3 (0.7-4.5); Lymphocytes % 16.5 % (10-50); Mean Corpuscular HGB Conc 33.8 g/dL (31.8-35.4); Mean Corpuscular Volume 103.4 fl (81-99); Mean Platelet Volume 8.6 fl (7.4-10.4); Monocytes # 0.2 K/mm3 (0.1-1.0); Monocytes % 5.5 % (1.7-9.3); Neutrophils # 2.7 K/mm3 (1.8-7.8); Neutrophils % 77.5 % (37.0-80.0); Platelet Count 157 K/mm3 (142-424); Red Blood Count 2.43 M/mm3 (4.20-5.40); Red Cell Distribution Width 17.2 % (11.5-17.5); White Blood Count 3.5 K/mm3 (4.8-10.8)
[2024-03-04 10:57] LABS: Alanine Aminotransferase 9 U/L (12-78); Albumin Level 3.8 g/dl (3.5-5.0); Albumin/Globulin Ratio 1.7 (1.1-1.8); Alkaline Phosphatase 59 U/L (38-126); Anion Gap 11.7 mEq/L (5-15); Aspartate Amino Transferase 19 U/L (14-36); Bilirubin,Total 0.9 mg/dl (0.2-1.3); Blood Urea Nitrogen 14 mg/dl (7-17); Calcium 9.1 mg/dl (8.4-10.2); Carbon Dioxide 24 mmol/L (22.0-30.0); Chloride 106 mmol/L (98-107); Creatinine Clearance Estimated 34 mL/min (50-200); Estimated Glomerular Filt Rate 68 ml/min (>60); GFR (African American) 82 ML/MIN (>60); Globulin 2.2 g/dL (1.3-3.2); Glucose 94 mg/dl (74-100); Potassium 3.7 mmoL/L (3.5-5.1); Sodium 138 mmol/L (136-145)
[2024-03-04 11:09] LABS: NT Pro Brain Natriuretic Pep. 389 pg/mL (0-450); Troponin I 0.01 ng/ml (0.00-0.034)
[2024-03-04 11:14] LABS: T4 (Thyroxine) 12.3 ug/dl (5.53-11.0)
[2024-03-04 11:14] LABS: Bacteria,Urine 2+ /lpf; RBC,Urine Occasional #/hpf (0-3)
[2024-03-04 11:16] LABS: Coronavirus 19, PCR Not Detected (NotDetected); Influenza A, PCR Not Detected (NotDetected); Influenza B, PCR Not Detected (NotDetected)
--- NOTE | 2024-03-04 11:17 | PC.NURSE ---
Pt going to CT
--- NOTE | 2024-03-04 11:26 | PC.NURSE ---
DR GARCIA UPDATING FAMILY
--- NOTE | 2024-03-04 11:30 | PC.NURSE ---
PT RETURNED FROM CT
[2024-03-04] MEDS: 0.9 % SODIUM CHLORIDE 1000ML 1,000 ML 999 ML IV (11:37)
[2024-03-04] MEDS: CEFTRIAXONE SODIUM 2 GM in 0.9 % SODIUM CHLORIDE 100 ML IV (11:37)
--- NOTE | 2024-03-04 11:37 | HMH.EDGENADL ---
Discharge Plan Disposition Patient Disposition: Xfer SNF Condition: Good Prescriptions Prescriptions: New cefdinir 300 mg capsule 300 mg PO BID 10 Days Qty: 20 0RF No Action potassium chloride 10 mEq tablet extended release 10 meq PO DAILY melatonin 5 mg capsule 5 mg PO DAILY 90 Days Qty: 90 0RF mirtazapine 30 mg tablet 30 mg PO DAILY Qty: 30 2RF polyethylene glycol 3350 [Miralax] 17 gram/dose powder 17 g PO DAILY Qty: 510 0RF rivastigmine 9.5 mg/24 hour patch 24 hour 9.5 mg transdermal DAILY Qty: 30 2RF Rx Instructions: apply at 8am, remove at 8am tamsulosin 0.4 mg capsule 0.4 mg PO DAILY Qty: 30 2RF lisinopril 20 mg tablet 20 mg PO DAILY Qty: 30 2RF amlodipine 10 mg tablet 10 mg PO DAILY Qty: 30 2RF pravastatin 80 mg tablet 80 mg PO DAILY Qty: 30 2RF acetaminophen 325 mg capsule 650 mg PO Q6H PRN (Reason: headache) Qty: 60 0RF apixaban 2.5 mg tablet 2.5 mg PO BID Qty: 60 2RF aripiprazole 2 mg tablet 2 mg PO DAILY Qty: 30 2RF bethanechol chloride 10 mg tablet 10 mg PO TID Qty: 90 2RF donepezil 10 mg tablet 10 mg PO DAILY Qty: 30 2RF fluticasone furoate 50 mcg/actuation blister with device See Rx Instructions inhalation DAILY 90 Days Qty: 30 0RF Rx Instructions: 2 inhaled daily; hydralazine 25 mg tablet 25 mg PO BID Qty: 60 0RF hydroxyzine HCl 25 mg tablet 25 mg PO TID PRN (Reason: itching) Qty: 90 0RF meclizine 25 mg tablet 25 mg PO TID PRN (Reason: dizziness) Qty: 90 0RF ondansetron 4 mg tablet,disintegrating 4 mg PO Q6H PRN (Reason: nausea and vomiting) Qty: 14 0RF Referrals Follow up/Referrals: Provider,Referral, MD [Primary Care Provider] - See instructions Activity Restrictions/Add. Instructions Additional Instructions/Restrictions: You were evaluated in the emergency department today. You were diagnosed with urinary tract infection. It also looks like you have a sinus infection on CT. It also looks you are dehydrated and have malnutrition. I recommend maintaining an adequate diet. Please take the prescription for cefdinir as prescribed. Follow-up closely with primary care. Return to the emergency department for new or worsening symptoms. Clinical Impressions Clinical Impression: Acute UTI, Sinusitis, Malnutrition, Dehydration Instructions Patient Instructions: DI for Urinary Tract Infection (UTI), DI for Altered Mental Status Print Language Print Language: Panamanian Discharge ED Provider: Sendy Rios General Adult HPI General Chief complaint: Altered Mental Status Stated complaint: Altered mental status Time Seen by Provider: 03/04/24 10:39 Mode of Arrival: EMS Source of Information: EMS Limitations: Altered Mental Status Description of Symptoms (Recalled from ER Triage Doc. by RN): PT BROUGHT VIA EMS FROM OR FOR ALTERED MENTAL STATUS. OR HOME REPORTS EPISODES OF PT BEING UNRESPONSIVE. PT ALERT TO SELF History of Present Illness HPI narrative: This patient is an 88-year-old female with a history of hypertension, hyperlipidemia, dementia, prior cerebellar stroke presenting to the emergency department for evaluation with concern for reported altered mental status. Patient is oriented to self at baseline. According to the long term, patient has had episodes of being unresponsive and altered. Patient is currently alert and conversational. EMS arrived with the patient and noted she was stable en route with no significant vital sign abnormalities. Patient does not provide reliable history given her dementia, but she denies any concerns or complaints at this time. Related Data Home Medications ?Medication ?Instructions ?Recorded ?Confirmed potassium chloride 10 mEq 10 meq PO DAILY 02/25/24 02/25/24 tablet,extended release Previous Rx's ?Medication ?Instructions ?Recorded acetaminophen 325 mg capsule 650 mg (2 x 325 mg) PO Q6H PRN 02/17/24 headache #60 caps amlodipine 10 mg tablet 10 mg PO DAILY #30 tabs 02/17/24 apixaban 2.5 mg tablet 2.5 mg PO BID #60 tabs 02/17/24 aripiprazole 2 mg tablet 2 mg PO DAILY #30 tabs 02/17/24 bethanechol chloride 10 mg tablet 10 mg PO TID #90 tabs 02/17/24 donepezil 10 mg tablet 10 mg PO DAILY #30 tabs 02/17/24 fluticasone furoate 50 See Rx Instructions inhalation 02/17/24 mcg/actuation blister powder for DAILY 90 days #30 ea inhalation hydralazine 25 mg tablet 25 mg PO BID #60 tabs 02/17/24 hydroxyzine HCl 25 mg tablet 25 mg PO TID PRN itching #90 tabs 02/17/24 lisinopril 20 mg tablet 20 mg PO DAILY #30 tabs 02/17/24 meclizine 25 mg tablet 25 mg PO TID PRN dizziness #90 tabs 02/17/24 melatonin 5 mg capsule 5 mg PO DAILY 90 days #90 caps 02/17/24 mirtazapine 30 mg tablet 30 mg PO DAILY #30 tabs 02/17/24 polyethylene glycol 3350 17 17 g PO DAILY #510 grams 02/17/24 gram/dose oral powder (Miralax) pravastatin 80 mg tablet 80 mg PO DAILY #30 tabs 02/17/24 rivastigmine 9.5 mg/24 hour 9.5 mg transdermal DAILY #30 ea 02/17/24 transdermal patch tamsulosin 0.4 mg capsule 0.4 mg PO DAILY #30 caps 02/17/24 ondansetron 4 mg disintegrating 4 mg PO Q6H PRN nausea and 02/18/24 tablet vomiting #14 tabs cefdinir 300 mg capsule 300 mg PO BID 10 days #20 caps 03/04/24 Allergies Allergy/AdvReac Type Severity Reaction Status Date / Time No Known Allergies Allergy Verified 02/25/24 16:11 [facility] Disclaimer: The information contained in this section may have been updated after the patient was seen, as this information can be updated by other users. 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 Other Medical History Have you received the Pneumonia Vaccine: Yes ROS Obtained: Yes All systems reviewed & no additional complaints except as documented Physical Exam General General appearance: alert and in no apparent distress Head Head exam: atraumatic and normocephalic Eye Eye exam: Present normal appearance, PERRL and EOMI ENT ENT exam: Present normal exam, normal oropharynx, mucous membranes moist and normal external ear exam Neck Neck exam: Present normal inspection, full ROM and trachea midline; Absent tenderness Chest Chest inspection: Present normal inspection and symmetric chest wall rise; Absent tenderness Respiratory Respiratory exam: Present normal lung sounds bilaterally; Absent respiratory distress, wheezes, stridor or accessory muscle use Cardiovascular Cardiovascular exam: Present regular rate and normal rhythm Abdominal Exam Abdominal exam: Present soft; Absent distention, tenderness or guarding Extremities Exam Extremities exam: Present normal inspection, full ROM and normal capillary refill; Absent tenderness or edema Back Exam Back exam: Present normal inspection and full ROM; Absent tenderness Neurological Exam Neurological exam: Present alert and CN II-XII intact; Absent oriented X3 or motor sensory deficit Psychiatric Psychiatric exam: Present normal affect and normal mood Skin Skin exam: Present warm and dry Medical Decision Making Medical Records Medical records reviewed: Yes I reviewed the patient's medical records. Screening: Per USPSTF and CDC recommendations, given the prevalence of disease in our region, it is our hospital?s policy to screen for HIV and viral Hepatitis for all patients aged 18 and over and those with ongoing risk factors. Paco Inquiry Pt receiving controlled substance: No Vital Signs: 03/04/24 10:19 03/04/24 11:00 03/04/24 11:01 Temperature 97.8 F Temperature Source Oral Pulse Rate 62 63 Pulse Rate [Apical] 63 Respiratory Rate 18 18 15 Blood Pressure 140/52 L 141/50 H Blood Pressure [Right Arm] 148/56 H Blood Pressure Mean Blood Pressure Mean [Right Arm] 86 Blood Pressure Source [Right Arm] Automatic Cuff Blood Pressure Position [Right Arm] Sitting 02 Sat by Pulse Oximetry 98 97 96 Oxygen Delivery Method Room Air 03/04/24 12:00 03/04/24 12:30 03/04/24 12:55 Temperature 97.8 F Temperature Source Pulse Rate 61 59 L 75 Pulse Rate [Apical] Respiratory Rate 14 13 20 Blood Pressure 137/44 L 131/43 L 110/65 Blood Pressure [Right Arm] Blood Pressure Mean 75 72 Blood Pressure Mean [Right Arm] Blood Pressure Source [Right Arm] Blood Pressure Position [Right Arm] 02 Sat by Pulse Oximetry 98 98 Oxygen Delivery Method Room Air Room Air Room Air 03/04/24 13:01 03/04/24 13:30 03/04/24 14:00 Temperature Temperature Source Pulse Rate 60 62 65 Pulse Rate [Apical] Respiratory Rate 14 11 L 14 Blood Pressure 133/41 L 129/45 L 137/50 L Blood Pressure [Right Arm] Blood Pressure Mean 79 Blood Pressure Mean [Right Arm] Blood Pressure Source [Right Arm] Blood Pressure Position [Right Arm] 02 Sat by Pulse Oximetry 97 96 96 Oxygen Delivery Method Room Air 03/04/24 14:30 Temperature Temperature Source Pulse Rate 66 Pulse Rate [Apical] Respiratory Rate 13 Blood Pressure 143/53 H Blood Pressure [Right Arm] Blood Pressure Mean 83 Blood Pressure Mean [Right Arm] Blood Pressure Source [Right Arm] Blood Pressure Position [Right Arm] 02 Sat by Pulse Oximetry 96 Oxygen Delivery Method Room Air Lab Data Lab results reviewed: Yes I reviewed the patient's lab results. Lab Results 03/04/24 10:24: Urine Color Yellow, Urine Appearance Sl cloudy, Urine pH 6.0, Ur Specific Golden >= 1.030, Urine Protein 1+ A, Urine Glucose (UA) Negative, Urine Ketones 2+, Urine Blood Negative, Urine Nitrate Positive, Urine Bilirubin 1+ A, Urine Urobilinogen 1.0, Ur Leukocyte Esterase Trace, Urine RBC Occasional, Urine WBC 5-10, Ur Squamous Epith Cells 3-5, Urine Bacteria 2+ 03/04/24 10:35: WBC 3.5 L, RBC 2.43 L, Hgb 8.5 L, Hct 25.2 L, MCV 103.4 H, MCH 35.0 H, MCHC 33.8, RDW 17.2, Plt Count 157, MPV 8.6, Neut % (Auto) 77.5, Lymph % (Auto) 16.5, Treasure % (Auto) 5.5, Eos % (Auto) 0.3, Baso % (Auto) 0.2, Neut # (Auto) 2.7, Lymph # (Auto) 0.6 L, Treasure # (Auto) 0.2, Eos # (Auto) 0.0, Baso # (Auto) 0.0, Sodium 138, Potassium 3.7, Chloride 106, Carbon Dioxide 24, Anion Gap 11.7, BUN 14, Creatinine 0.80, Estimated Creat Clear 34, Estimated GFR 68, Est GFR ( Amer) 82, Glucose 94, Calcium 9.1, Magnesium 2.0, Total Bilirubin 0.9, AST 19, ALT 9 L, Alkaline Phosphatase 59, Troponin I 0.01, NT-Pro-B Natriuret Pep 389, Total Protein 6.0 L, Albumin 3.8, Globulin 2.2, Albumin/Globulin Ratio 1.7, TSH 4.02, Thyroxine (T4) 12.3 H, HIV 1&2 Antibody Rapid Nonreactive 03/04/24 10:45: VBG pH 7.39, VBG pCO2 36.2, VBG pO2 103.1 H, VBG HCO3 21.3 L, VBG Total CO2 22.4 L, VBG O2 Saturation 97.4 H, VBG Base Excess -3.7 L, VBG Lactic Acid 1.2 03/04/24 11:12: SARS-CoV-2 (PCR) Not detected, Influenza A Untype (PCR) Not detected, Influenza Type B (PCR) Not detected 03/04/24 10:35 03/04/24 10:35 Orders (Tests/Meds): ED MEDICATIONS Discontinued Medications Generic Name Dose Route Start Last Admin Trade Name Freq PRN Reason Stop Dose Admin Sodium Chloride 1,000 mls @ 999 mls/hr 03/04/24 11:23 03/04/24 11:37 Sod Chlor 0.9% 1000ml Bag IV 03/04/24 12:23 999 mls/hr .Q1H1M ONE Administration Ceftriaxone Sodium 2 gm/ 100 mls @ 200 mls/hr 03/04/24 11:24 03/04/24 11:37 Sodium Chloride IV 03/04/24 11:53 200 mls/hr ONCE ONE Administration ORDERS Category Date Time Status CT head/brain wo con Stat Cat Scan 03/04/24 10:45 Taken CXR --portable [XR chest portable] Stat Exams 03/04/24 10:45 Taken BNP [NT Pro Brain Natriuretic Pep.] Stat Lab 03/04/24 10:35 Completed CBC w/Auto Diff [Complete Blood Count Auto Diff] Stat Lab 03/04/24 10:35 Completed CMP [Comprehensive Metabolic Panel] Stat Lab 03/04/24 10:35 Completed HIV (1&2) Antibody Rapid Stat Lab 03/04/24 10:35 Completed Hep C Ab with Reflex to RNA Stat Lab 03/04/24 10:35 Received MAG [Magnesium] Stat Lab 03/04/24 10:35 Completed Rapid PCR Covid and Flu A/B Stat Lab 03/04/24 11:12 Completed T4 (Thyroxine) Stat Lab 03/04/24 10:35 Completed TSH [Thyroid Stimulating Hormone] Stat Lab 03/04/24 10:35 Completed Trop I [Troponin I] Stat Lab 03/04/24 10:35 Completed UA [Urinalysis and Microscopic] Stat Lab 03/04/24 10:24 Completed Blood Culture Stat Micro 03/04/24 11:37 Received Urine Culture Stat Micro 03/04/24 10:24 Received VBG [Venous Blood Gas] Stat RT 03/04/24 10:45 Completed ECG Data Tracing #1: I reviewed this ECG and interpreted as documented below: Normal sinus rhythm with a ventricular rate of 62 bpm. Right bundle branch block. No acute ST changes concerning for ischemia ECG initial impression date: 03/04/24 ECG initial impression time: 10:45 Medical Decision Narrative: In summary, this patient is a 88-year-old female presenting to the Emergency Department for evaluation of reported altered mental status from long term. Differential diagnoses considered include but are not limited to urinary tract infection, CVA, intracranial hemorrhage, electrolyte derangements, dehydration. Ruling out the most morbid conditions drove assessment. It should be noted patient's history includes dementia and cerebellar stroke which are not at goal therapy. This complicates all aspects of care by increasing patient's risk for morbidity. I reviewed patient's past medical records and noted evaluations over the last several weeks for dehydration and protein malnutrition. On exam, the patient is lying in bed in no acute distress. Exam is reassuring with no focal findings. She denies any concerns or complaints, though she is not a reliable historian. Workup included broad lab evaluation to evaluate for infectious, metabolic, cardiac causes of symptoms as well as CT head and chest x-ray. I independently interpreted CT head and chest x-ray prior to the radiologist read and noted no obvious acute changes from prior. Please see their read for final interpretation. Labs were obtained that demonstrated urinary tract infection without significant electrolyte derangements. She does have ketonuria. She does have low albumin. Patient was treated with a bolus of normal saline. She was also given IV Rocephin for UTI. I had a long discussion with her daughter regarding her baseline and how she does in the long term, and she is not a good eater or drinker at baseline. I suspect this is the cause of her recurrent symptoms. On reassessment, patient remains at her baseline. Ultimately after fluid resuscitation and treatment of urinary tract infection as well as sinusitis with cephalosporins, I feel that she is appropriate for discharge home back to her nursing facility with instructions to maintain hydration and nutrition there, prescription for cefdinir, and very strict return precautions. Patient was discharged after all questions were answered. EMS transport was arranged back to her facility. Critical Care Critical Care Time Critical Care Time: No
[2024-03-04 11:44] LABS: Thyroid Stimulating Hormone 4.02 uIU/mL (0.465-4.68)
[2024-03-04 12:17] LABS: HIV (1&2) Antibody Rapid NONREACTIVE (NONREACTIVE)
--- NOTE | 2024-03-04 12:49 | PC.NURSE ---
DR GARCIA AT BEDSIDE TO UPDATE PT
--- NOTE | 2024-03-04 12:56 | PC.NURSE ---
REPORT CALLED TO ROSSY AT [facility]
--- NOTE | 2024-03-04 13:00 | PC.NURSE ---
[facility] NOTIFIED OF TRANSFER, CURRENTLY OUT ON TRANSFER TO [facility]
--- NOTE | 2024-03-04 13:02 | PC.NURSE ---
called care management, will work on pre authorization at this time.
[2024-03-05 06:15] LABS: HCV Ab Non Reactive (Non Reactive)
== END 2024-03-04 15:07 ==
PROVIDERS: Emergency Provider Emergency Medicine
DX: R41.82 Altered mental status, unspecified (principal); E86.0 Dehydration; E46 Unspecified protein-calorie malnutrition; J32.9 Chronic sinusitis, unspecified; N39.0 Urinary tract infection, site not specified
CPT/HCPCS: 70450; 71045; 80053; 81001; 82803; 83735; 83880; 84436; 84443; 84484; 85025; 86803; 87040; 87086; 87088; 87186; 87389; 87636; 93005; 96361; 96365; 99284; J0696; J7030

== ENCOUNTER 2024-04-13 07:19 | Emergency (ER) | payer MEDICARE, SELFPAY ==
[2024-04-13] VITALS (11 sets, daily range): BP systolic 125–166; BP diastolic 49–109; PULSE 56–76; RESP 19; TEMP 36.4; O2SAT 94–100; BMI 32.3
--- NOTE | 2024-04-13 07:25 | CT_ITS ---
FINAL REPORT TECHNIQUE: Noncontrast exam This study was performed with techniques to keep radiation doses as low as reasonably achievable, (ALARA). Individualized dose reduction techniques using automated exposure control or adjustment of mA and/or kV according to the patient''s size were employed. CLINICAL HISTORY: fall, found down, head trauma L sided COMPARISON: 03/14/2024 FINDINGS: There is moderate generalized atrophy. There is a right frontal scalp hematoma. No abnormal density is seen. Ventricles are normal. There is no hemorrhage. No mass effect is seen. Bone windows show no evidence of fracture. IMPRESSION: No acute intracranial abnormality. Reviewed, Interpreted and Dictated by Yanci Nicole MD Transcribed by Lindsay Zaragoza Authenticated and [facility]
--- NOTE | 2024-04-13 07:25 | XR_ITS ---
FINAL REPORT CLINICAL HISTORY: prox left femur pain after fall COMPARISON: None FINDINGS: Two views of the left femur were obtained. There is a comminuted fracture of the distal left femoral neck and intertrochanteric region with mild displacement. There is no subluxation or dislocation. IMPRESSION: Mildly displaced distal left femoral neck fracture. Reviewed, Interpreted and Dictated by Yanci Nicole MD Transcribed by Latia Rosales Authenticated and . [facility]
--- NOTE | 2024-04-13 07:25 | CT_ITS ---
FINAL REPORT TECHNIQUE: Thin section axial CT with sagittal reconstruction without contrast This study was performed with techniques to keep radiation doses as low as reasonably achievable, (ALARA). Individualized dose reduction techniques using automated exposure control or adjustment of mA and/or kV according to the patient''s size were employed. CLINICAL HISTORY: fall, found down, head trauma L sided COMPARISON: None FINDINGS: CT CERVICAL SPINE: No fracture is seen. Alignment is normal. No obvious bony spinal canal stenosis is present. Moderate diffuse degenerative joint disease is present, along with diffuse facet arthropathy. IMPRESSION: No fracture or malalignment. Moderate diffuse degenerative change as described. Reviewed, Interpreted and Dictated by Yanci Nicole MD Transcribed by Ines Guzman Authenticated and [facility]
--- NOTE | 2024-04-13 07:25 | CT_ITS ---
FINAL REPORT TECHNIQUE: Axial imaging of the pelvis was obtained without contrast.This study was performed with techniques to keep radiation doses as low as reasonably achievable, (ALARA). Individualized dose reduction technique using automated exposure control or adjustment of mA and/or kV according to the patient's size were employed. CLINICAL HISTORY: fall, found down, head trauma L sided FINDINGS: There is a comminuted fracture of the distal left femoral neck and intertrochanteric femoral neck which is moderately displaced. There is generalized osteopenia. Moderate degenerative changes are noted of the right hip. Femoral heads are located bilaterally. Soft tissues demonstrate no acute abnormality. Sacral ala are intact. IMPRESSION: Comminuted fracture of the distal left femoral neck and intertrochanteric femoral neck with moderate displacement. Reviewed, Interpreted and Dictated by Yanci Nicole MD Transcribed by Lindsay Zaragoza Authenticated and . [facility]
--- NOTE | 2024-04-13 07:25 | CT_ITS ---
FINAL REPORT TECHNIQUE: Axial imaging of the lumbar spine was obtained without contrast. Reformatted images were also obtained and reviewed.This study was performed with techniques to keep radiation doses as low as reasonably achievable, (ALARA). Individualized dose reduction techniques using automated exposure control or adjustment of mA and/or kV according to the patient's size were employed. CLINICAL HISTORY: fall, found down, L sided hip pain FINDINGS: There is no acute fracture or subluxation. There are advanced degenerative changes resulting in multilevel canal stenosis and neuroforaminal narrowing, most pronounced at L3-4 and L4-5. The vertebra are normal height. There is no malalignment. Facets are properly aligned. Prevertebral soft tissues unremarkable. IMPRESSION: No acute bony abnormality. Reviewed, Interpreted and Dictated by Yanci Nicole MD Transcribed by Lindsay Zaragoza Authenticated and [facility]
[2024-04-13] MEDS: IBUPROFEN 400 MG TABLET PO (07:30)
[2024-04-13] MEDS: ACETAMINOPHEN 500MG TAB 1000 MG PO (07:30)
--- NOTE | 2024-04-13 07:48 | ED_ITS ---
Discharge Plan Disposition Patient Disposition: Hospice - Home Chief Complaint: Fall Prescriptions Prescriptions: No Action potassium chloride 10 mEq tablet extended release 10 meq PO DAILY mirtazapine 30 mg tablet 15 mg PO DAILY lacosamide 50 mg tablet 50 mg PO QHS melatonin 5 mg capsule 5 mg PO DAILY 90 Days Qty: 90 0RF polyethylene glycol 3350 [Miralax] 17 gram/dose powder 17 g PO DAILY Qty: 510 0RF rivastigmine 9.5 mg/24 hour patch 24 hour 9.5 mg transdermal DAILY Qty: 30 2RF Rx Instructions: apply at 8am, remove at 8am tamsulosin 0.4 mg capsule 0.4 mg PO DAILY Qty: 30 2RF lisinopril 20 mg tablet 20 mg PO DAILY Qty: 30 2RF pravastatin 80 mg tablet 80 mg PO DAILY Qty: 30 2RF acetaminophen 325 mg capsule 650 mg PO Q6H PRN (Reason: headache) Qty: 60 0RF apixaban 2.5 mg tablet 2.5 mg PO BID Qty: 60 2RF aripiprazole 2 mg tablet 2 mg PO DAILY Qty: 30 2RF bethanechol chloride 10 mg tablet 10 mg PO TID Qty: 90 2RF donepezil 10 mg tablet 10 mg PO DAILY Qty: 30 2RF fluticasone furoate 50 mcg/actuation blister with device See Rx Instructions inhalation DAILY 90 Days Qty: 30 0RF Rx Instructions: 2 inhaled daily; hydralazine 25 mg tablet 25 mg PO BID Qty: 60 0RF hydroxyzine HCl 25 mg tablet 25 mg PO TID PRN (Reason: itching) Qty: 90 0RF meclizine 25 mg tablet 25 mg PO TID PRN (Reason: dizziness) Qty: 90 0RF ondansetron 4 mg tablet,disintegrating 4 mg PO Q6H PRN (Reason: nausea and vomiting) Qty: 14 0RF cefdinir 300 mg capsule 300 mg PO BID 10 Days Qty: 20 0RF Referrals Follow up/Referrals: Provider,Referral, MD [Primary Care Provider] - See instructions Activity Restrictions/Add. Instructions Additional Instructions/Restrictions: Discontinue taking blood thinner (Eliquis). Continue following with hospice for pain control. Continue following with your family doctor for further pain control and definitive management. Clinical Impressions Clinical Impression: Closed left femoral fracture Print Language Print Language: Mongolian Discharge ED Provider: Finesse Pablo General Adult HPI General Chief complaint: Fall Stated complaint: hip pain Time Seen by Provider: 04/13/24 07:24 Mode of Arrival: EMS Source of Information: Patient Limitations: No Limitations Description of Symptoms (Recalled from ER Triage Doc. by RN): pt presents to Ed via ems for fall. pt lives at [facility]. pt was found on ground during morning rounds. pt reports she was going to look for someone when she fell, pt was not using walker at the time of fall. pt does have hx of dementia. pt reports no pain at time of assessment, but reported right hip pain to EMS. History of Present Illness HPI narrative: Please note that above description of symptoms, in this electronic medical record under categorization of recalled from ER triage doctor by RN are reflective of an initial nursing assessment, however, is not reflective of my full history and physical exam that was personally taken and clarified. Consequentially, this preceding description of symptoms, which may include the patient's categorized chief complaint in the EMR, do not reflect my personal clinical impression, and the ultimate description of history of present illness and patient stated complaints should be deferred to this section of the note. Unless stated otherwise or congruent with this section of the note, additional signs, symptoms, or incongruence should be interpreted as inaccurate with my clinical impression. Related Data Home Medications ?Medication ?Instructions ?Recorded ?Confirmed potassium chloride 10 mEq 10 meq PO DAILY 02/25/24 02/25/24 tablet,extended release lacosamide 50 mg tablet 50 mg PO QHS 03/29/24 03/29/24 mirtazapine 30 mg tablet 15 mg PO DAILY 03/29/24 Previous Rx's ?Medication ?Instructions ?Recorded acetaminophen 325 mg capsule 650 mg (2 x 325 mg) PO Q6H PRN 02/17/24 headache #60 caps apixaban 2.5 mg tablet 2.5 mg PO BID #60 tabs 02/17/24 aripiprazole 2 mg tablet 2 mg PO DAILY #30 tabs 02/17/24 bethanechol chloride 10 mg tablet 10 mg PO TID #90 tabs 02/17/24 donepezil 10 mg tablet 10 mg PO DAILY #30 tabs 02/17/24 fluticasone furoate 50 See Rx Instructions inhalation 02/17/24 mcg/actuation blister powder for DAILY 90 days #30 ea inhalation hydralazine 25 mg tablet 25 mg PO BID #60 tabs 02/17/24 hydroxyzine HCl 25 mg tablet 25 mg PO TID PRN itching #90 tabs 02/17/24 lisinopril 20 mg tablet 20 mg PO DAILY #30 tabs 02/17/24 meclizine 25 mg tablet 25 mg PO TID PRN dizziness #90 tabs 02/17/24 melatonin 5 mg capsule 5 mg PO DAILY 90 days #90 caps 02/17/24 polyethylene glycol 3350 17 17 g PO DAILY #510 grams 02/17/24 gram/dose oral powder (Miralax) pravastatin 80 mg tablet 80 mg PO DAILY #30 tabs 02/17/24 rivastigmine 9.5 mg/24 hour 9.5 mg transdermal DAILY #30 ea 02/17/24 transdermal patch tamsulosin 0.4 mg capsule 0.4 mg PO DAILY #30 caps 02/17/24 ondansetron 4 mg disintegrating 4 mg PO Q6H PRN nausea and 02/18/24 tablet vomiting #14 tabs cefdinir 300 mg capsule 300 mg PO BID 10 days #20 caps 03/04/24 Allergies Allergy/AdvReac Type Severity Reaction Status Date / Time No Known Allergies Allergy Verified 03/29/24 15:12 [facility] Disclaimer: The information contained in this section may have been updated after the patient was seen, as this information can be updated by other users. Medical History Hyperlipidemia Hypokalemia Pancytopenia MICKEY (acute kidney injury) Essential hypertension Dementia Severe malnutrition Cerebellar stroke Social History Smoking Status: Former smoker alcohol intake: never current occupational status: retired Travel in the last 8 weeks: None housing: half-way marital status: other: had been a [employer] Have you lived/traveled outside [place] in past 30 days?: No Contact w/someone who lives/traveled outside US past 30 days?: No Exposure to someone with infectious disease in past 14 days?: No Do you have a fever (greater than 100.4 F or 38 C)?: No Have you tested positive for COVID-19: No Exposed to someone with COVID-19 in past 14 days?: No Do you have a sore throat?: No Do you have a cough?: No Do you have any weakness?: No Do you have any diarrhea?: No Are you experiencing any unusual bleeding?: No Do you have any muscle aches/pain?: No Do you have any abdominal pain?: No Are you experiencing loss of taste or smell?: No Other Medical History Have you received the Pneumonia Vaccine: Yes ROS Obtained: Yes All systems reviewed & no additional complaints except as documented and Yes other (within confines of known dementia) Physical Exam General General appearance: other (eyes closed, but opens to voice. GCS 14) Head Head exam: normocephalic and other (Bruises on left side of face and forehead) Eye Eye exam: Present normal appearance, PERRL (3 mm and reactive bilaterally) and EOMI; Absent scleral icterus or conjunctival redness Neck Neck exam: Present trachea midline and other (No tenderness on exam, patient placed in cervical collar out of abundance of caution.); Absent tenderness Chest Chest inspection: Present normal inspection and symmetric chest wall rise; Absent tenderness Respiratory Respiratory exam: Present normal lung sounds bilaterally; Absent respiratory distress, wheezes, stridor, accessory muscle use or prolonged expiratory phase Cardiovascular Cardiovascular exam: Present regular rate, normal rhythm and other (Pulses equal symmetric in upper and lower extremities) Abdominal Exam Abdominal exam: Present soft; Absent distention, tenderness or pulsatile mass Extremities Exam Extremities exam: Present edema (Bilateral 1+ lower extremity nonpitting edema) and other (The pelvis stable. Full range of motion right hip/knee/ankle, and left knee/ankle. Tenderness with left hip flexion/external rotation. Not shortened or lying in rotation. Neurovascularly intact bilateral lower extremities.) Neurological Exam Neurological exam: Present alert and CN II-XII intact; Absent oriented X3 (Oriented to person) or motor sensory deficit Skin Skin exam: Present warm and dry; Absent diaphoresis or erythema Medical Decision Making Medical Records Medical records reviewed: Yes I reviewed the patient's medical records. Screening: Per USPSTF and CDC recommendations, given the prevalence of disease in our region, it is our hospital?s policy to screen for HIV and viral Hepatitis for all patients aged 18 and over and those with ongoing risk factors. Paco Inquiry Pt receiving controlled substance: No Paco was queried for this patient: No Vital Signs: 04/13/24 07:19 04/13/24 07:20 04/13/24 07:30 Temperature 97.6 F Temperature Source Oral Pulse Rate 76 67 Pulse Rate [Left Radial] 72 Respiratory Rate 19 Blood Pressure 166/55 H 155/82 H Blood Pressure [Right Arm] 166/55 H Blood Pressure Mean [Right Arm] 92 02 Sat by Pulse Oximetry 98 99 95 Oxygen Delivery Method Room Air Room Air Room Air Oxygen Flow Rate (LPM) 04/13/24 07:59 04/13/24 09:00 04/13/24 09:30 Temperature Temperature Source Pulse Rate 60 73 69 Pulse Rate [Left Radial] Respiratory Rate Blood Pressure 132/109 H 137/62 145/60 H Blood Pressure [Right Arm] Blood Pressure Mean [Right Arm] 02 Sat by Pulse Oximetry 94 L 100 100 Oxygen Delivery Method Nasal Cannula Nasal Cannula Nasal Cannula Oxygen Flow Rate (LPM) 2 2 2 04/13/24 10:00 04/13/24 10:30 Temperature Temperature Source Pulse Rate 60 68 Pulse Rate [Left Radial] Respiratory Rate Blood Pressure 125/49 L 148/64 H Blood Pressure [Right Arm] Blood Pressure Mean [Right Arm] 02 Sat by Pulse Oximetry 99 99 Oxygen Delivery Method Nasal Cannula Nasal Cannula Oxygen Flow Rate (LPM) 2 Orders (Tests/Meds): ED MEDICATIONS Discontinued Medications Generic Name Dose Route Start Last Admin Trade Name Freq PRN Reason Stop Dose Admin Acetaminophen 1,000 mg 04/13/24 07:26 04/13/24 07:30 Acetaminophen 500mg Tab PO 04/13/24 07:27 1,000 mg ONCE ONE Administration Ibuprofen 400 mg 04/13/24 07:26 04/13/24 07:30 Ibuprofen 400 Mg Tablet PO 04/13/24 07:27 400 mg ONCE ONE Administration ORDERS Category Date Time Status CT bony pelvis Stat Cat Scan 04/13/24 07:[address] cervical spine wo con Stat Cat Scan 04/13/24 07:[address] head/brain wo con Stat Cat Scan 04/13/24 07:[address] lumbar spine wo con Stat Cat Scan 04/13/24 07:[address] thoracic spine wo con Stat Cat Scan 04/13/24 08:20 Completed Femur XR left 2 views [XR femur LT 2V] Stat Exams 04/13/24 07:25 Completed Medical Decision Narrative: 88-year-old female history of hypertension, hyperlipidemia, CKD, dementia, previous CVA with unknown residual deficits presenting with fall. Patient fell in the early hours of the morning today, 04/13. Does not remember exactly, but staff last checked on her around midnight, reportedly found around shift change laying behind her bedroom door. Patient complaining of left hip pain. Has not tried to ambulate. Per report from EMS and relayed from staff at [facility], patient difficult to maintain/keep still due to senility. Has had multiple falls over the past couple of weeks due to forgetfulness, etc. EMS was called because patient was complaining of left hip pain, but no other complaints. Otherwise on arrival she is at her baseline, per EMS/per half-way staff. On arrival to the emergency department, GCS 14, has bruising on the left side of her forehead. Pupils 3 mm and reactive bilaterally. Normal EOMs. Patient placed in cervical collar out of abundance of caution, but no midline cervical spine tenderness on palpation. Equal strength in upper and lower extremities. Pulses equal and symmetric in upper and lower extremities. Patient has no trunk/torso trauma, no upper extremity complaints. Regarding lower extremities, pelvis is stable. Full range of motion right hip/knee/ankle, and left knee/ankle. Tenderness with left hip flexion/external rotation. Not shortened or lying in rotation. Neurovascularly intact bilateral lower extremities. History was obtained via conversation with patient, EMS. Patient placed on continuous cardiac monitoring and continuous pulse ox with initial blood pressure 165/55, heart rate 72, saturation 98% on room air. [Independent interpretation of EKG shows] sinus rhythm right bundle branch block morphology, but no acute ischemic change. OH 168, QRS 135, QTc 430. Leftward axis. Patient was given acetaminophen and ibuprofen for symptomatic management[ and correction of underlying abnormalities]. Workup independently interpreted and significant for no acute intracranial hemorrhage, no cervical, thoracic, or lumbar spine injury. CT bony pelvis with complex, comminuted intertrochanteric/surgical femoral neck fracture on the left. See radiology read for full review of final results. On reevaluation, c-collar cleared, patient in no acute distress and not requesting any meds. Daughter contacted around 9 AM regarding patient's status, likelihood or desire for surgical fixation. Daughter in line thus that patient is currently on hospice and would not like to proceed with surgery. I feel this is reasonable. Patient's daughter reached out to hospice facility and hospice arrived around 10:20 AM. Interactive discussion had with them. I also reached out the patient's primary care provider to update him and look for recommendations. Recommendations after an active discussion with primary care provider as well as hospice with same result. Patient to have returned [facility] with continued care. We also opted to discontinue patient's anticoagulation (apixaban) and concern for further falls, trauma. Because patient at baseline without signs or symptoms of clinical decompensation, deemed appropriate for discharge. Results were relayed to patient daughter who voiced understanding and were agreeable to outpatient management and follow up. I discussed my clinical impression with patient daughter and answered all questions. At this time, the evidence for any other entities in the differential is insufficient to warrant any further testing or ED observation. This was explained as well. Advisory was given that persistent or worsening symptoms require further evaluation. I confirmed the understanding of this discussion. Glass Toughening Operator disclaimer Much of this encounter note is an electronic vending machine coin collector spoken language to printed text. Electronic vending machine coin collector of the spoken language may permit errors. Although I have reviewed the note, some errors may still exist. Critical Care Critical Care Time Critical Care Time: No
--- NOTE | 2024-04-13 08:09 | ECG_ITS ---
APPROVED REPORT Exam: Resting ECG HR:68 bpm ECG Measurements Heart Rate 68 AXES MA 168 P 90 QRSd 135 QRS -6 QT 412 T 29 QTc 430 Conclusion Sinus rhythm Right bundle branch block Electronically signed by : HAROON CERVANTES, 04/13/2024 16:08:42
--- NOTE | 2024-04-13 08:20 | CT_ITS ---
FINAL REPORT CLINICAL HISTORY: fall, found down FINDINGS: Axial CT images of the thoracic spine were obtained without contrast. Sagittal and coronal reformatted images were also obtained. This study was performed with techniques to keep radiation doses as low as reasonably achievable (ALARA). Individualized dose reduction techniques using automated exposure control or adjustment of mA and/or kV according to the patient''s size were employed. There is no evidence of fracture. There is kyphosis and diffuse ankylosis. The vertebral alignment is normal. There is no evidence of significant canal stenosis. No paraspinous soft tissue abnormality is identified. IMPRESSION: No fracture or acute bony abnormality. No significant central canal stenosis. Reviewed, Interpreted and Dictated by Yanci Nicole MD Transcribed by Lindsay Zaragoza Authenticated and [facility]
--- NOTE | 2024-04-13 10:13 | PC.NURSE ---
Hospice nurse just arrived. speaking with her at this time.
--- NOTE | 2024-04-13 11:00 | PC.NURSE ---
[facility] no answer at nurses station at this time.
--- NOTE | 2024-04-13 11:06 | PC.NURSE ---
Junior called ems but care management is doing pre auth for insurance and junior will call ems back when that is done to let them know pt is ready to go to [place] for hospice at the facility
--- NOTE | 2024-04-13 11:23 | PC.NURSE ---
called rpeort to haylee at [place]
== END 2024-04-13 12:40 | disposition hospice, home (50) ==
PROVIDERS: Emergency Provider Emergency Medicine
DX: S72.92XA Unspecified fracture of left femur, initial encounter for closed fracture (principal); M25.552 Pain in left hip; W19.XXXA Unspecified fall, initial encounter; Y93.9 Activity, unspecified; Y92.122 Bedroom in nursing home as the place of occurrence of the external cause
CPT/HCPCS: 70450; 72125; 72128; 72131; 72192; 73552; 93005; 99284